=== PATIENT | male | born 1960 | race Caucasian/White ===

== ENCOUNTER 2016-09-06 16:49 | Emergency (ER) | payer SELFPAY ==
[~2016-09-06] VITALS: Ht 185.4 cm; Wt 53.5 kg
[~2016-09-06 16:49] MED LIST: Buspar PO; LOPRESSOR25 MG PO; NOHOMEMEDS; Remeron PO; celeXA PO
[2016-09-06 19:27] VITALS: BP 140/75
== END 2016-09-06 19:29 | disposition home or self-care (01) ==
LOC: EME 16:49
DX: F32.9 Major depressive disorder, single episode, unspecified (principal)
CPT/HCPCS: 90832; 99281; 99283

== ENCOUNTER 2016-09-16 05:45 | Inpatient (IN) | payer OTHER ==
[~2016-09-16] VITALS: Ht 185.4 cm; Wt 41.1 kg
[2016-09-16 06:18] LABS: HEMATOCRIT 40.2 % (38.0-50.0); MCH 28.8 PG (29.0-34.0); MCHC 32.3 G/DL (30.0-36.0); MCV 88.9 FL (86-99); MEAN PLAT.VOLUME 8.6 uM^3 (9.0-12.4); PLATELET COUNT 248 K/uL (156-360); RBC DIS.WIDTH-CV 14.1 % (11.8-14.6); RBC DIS.WIDTH-SD 45.4 % (39-53); RED BLOOD COUNT 4.52 M/uL (4.00-5.50); WHITE BLOOD COUNT 6.7 K/uL (4.1-10.2)
[2016-09-16 06:38] LABS: TROP-I INTERPRETATION NEGATIVE; TROPONIN-I < 0.01 ng/mL (0.0-0.30)
[2016-09-16 06:55] LABS: CHLORIDE 95 mEq/L (99-109); SODIUM 133 mEq/L (136-147)
[2016-09-16 06:57] LABS: GLUCOSE 105 mg/dL (70-99)
[2016-09-16 06:59] LABS: ANION GAP 13 MEQ/L (2-14)
[2016-09-16 07:01] LABS: GFR ESTIMATE (CALCULATED) > 59 mL/min/
[2016-09-16 07:02] LABS: UREA NITROGEN (BUN) 10 mg/dL (9-23)
[2016-09-16 07:48] LABS: D-DIMER ELISA 0.25 mg/L FEU (< 0.57)
[2016-09-16 10:48] LABS: INFLUENZA A VIRAL ANTIGEN NEGATIVE; INFLUENZA B VIRAL ANTIGEN NEGATIVE
[2016-09-16 12:19] LABS: TROP-I INTERPRETATION NEGATIVE; TROPONIN-I 0.01 ng/mL (0.0-0.30)
[2016-09-16 15:55] VITALS: BP 149/88
[2016-09-16 18:40] LABS: TROP-I INTERPRETATION NEGATIVE; TROPONIN-I 0.01 ng/mL (0.0-0.30)
[2016-09-16 19:34] VITALS: BP 137/69
[2016-09-16 23:26] VITALS: BP 160/89
[2016-09-17 03:10] VITALS: BP 141/60
[2016-09-17 07:50] VITALS: BP 161/89
[2016-09-17 08:56] LABS: BICARBONATE 32.8 mEq/L (22-26); CARBOXY HGB 2.4 % (0-5); METHEMOGLOBIN 2.5 % (0-1.5); PCO2 45 mm Hg (35-45); PO2 51 mm Hg (80-100); pH 7.47 (7.35-7.45)
[2016-09-17 08:57] LABS: COMMENTS - BLOOD GASES NEG A+C+; DEVICE RA; SITE RR; TOTAL RESP RATE 30 resp/min
[2016-09-17 09:25] LABS: ANION GAP 6 MEQ/L (2-14); CHLORIDE 101 MEQ/L (99-109); POTASSIUM 4.2 MEQ/L (3.7-5.4); SAMPLE HEMOLYSIS CHECK 0; SAMPLE ICTERIC CHECK 0; SAMPLE LIPEMIA CHECK 0; SODIUM 139 MEQ/L (136-147)
[2016-09-17 09:31] LABS: GFR ESTIMATE (CALCULATED) > 59 mL/min/; GLUCOSE 130 mg/dL (70-99); UREA NITROGEN (BUN) 14 mg/dL (9-23)
[2016-09-17 17:23] VITALS: BP 177/86
[2016-09-17 19:11] VITALS: BP 164/95
[2016-09-17 23:16] VITALS: BP 164/95
[2016-09-18] VITALS (7 sets, daily range): BP systolic 129–182; BP diastolic 76–94
[2016-09-18 07:29] LABS: ANION GAP 5 MEQ/L (2-14); CHLORIDE 100 MEQ/L (99-109); GFR ESTIMATE (CALCULATED) > 59 mL/min/; GLUCOSE 130 mg/dL (70-99); POTASSIUM 4.6 MEQ/L (3.7-5.4); SAMPLE HEMOLYSIS CHECK 0; SAMPLE ICTERIC CHECK 0; SAMPLE LIPEMIA CHECK 0; SODIUM 140 MEQ/L (136-147)
[2016-09-18 07:37] LABS: UREA NITROGEN (BUN) 24 mg/dL (9-23)
[2016-09-18 09:13] LABS: MAGNESIUM 2.1 mg/dl (1.3-2.7)
[2016-09-18 10:04] LABS: HEMATOCRIT 37.6 % (38.0-50.0); MCH 29.1 PG (29.0-34.0); MCHC 30.9 G/DL (30.0-36.0); MEAN PLAT.VOLUME 8.7 uM^3 (9.0-12.4); PLATELET COUNT 259 K/uL (156-360); RBC DIS.WIDTH-CV 14.6 % (11.8-14.6); RBC DIS.WIDTH-SD 50.2 % (39-53); RED BLOOD COUNT 3.99 M/uL (4.00-5.50)
[2016-09-18 10:05] LABS: MCV 94.2 FL (86-99); WHITE BLOOD COUNT 10.5 K/uL (4.1-10.2)
[2016-09-19] VITALS (27 sets, daily range): BP systolic 87–204; BP diastolic 54–106
[2016-09-19 01:50] LABS: BASE EXCESS 12.9 mEq/L (-3 to +3); CARBOXY HGB 2.2 % (0-5); METHEMOGLOBIN 2.4 % (0-1.5)
[2016-09-19 01:51] LABS: COMMENTS - BLOOD GASES C+A+; DEVICE NC; O2 FLOW 6 L/MIN; PCO2 126 mm Hg (35-45); PO2 93 mm Hg (80-100); SITE RR; pH 7.18 (7.35-7.45)
[2016-09-19 02:00] LABS: HEMATOCRIT 44.4 % (38.0-50.0); MCH 29.2 PG (29.0-34.0); MCHC 30.4 G/DL (30.0-36.0); MCV 95.9 FL (86-99); MEAN PLAT.VOLUME 8.6 uM^3 (9.0-12.4); PLATELET COUNT 330 K/uL (156-360); RBC DIS.WIDTH-CV 14.6 % (11.8-14.6); RBC DIS.WIDTH-SD 51.7 % (39-53); RED BLOOD COUNT 4.63 M/uL (4.00-5.50)
[2016-09-19 02:01] LABS: WHITE BLOOD COUNT 14.5 K/uL (4.1-10.2)
[2016-09-19 02:27] LABS: TROP-I INTERPRETATION NEGATIVE; TROPONIN-I < 0.01 ng/mL (0.0-0.30)
[2016-09-19 03:04] LABS: HDL CHOLESTEROL 55 MG/DL (Desirable>=40); LDL CHOLESTEROL 121 mg/dL (Desirable<100); NON-HDL CHOLESTEROL 137 mg/dL (Desirable<160); TOTAL CHOLESTEROL 192 mg/dL (Desirable<200); TRIGLYCERIDES 82 MG/DL (Normal: <150)
[2016-09-19 03:40] LABS: METH RESISTANT S AUREUS PCR NEGATIVE (NEGATIVE)
[2016-09-19 03:43] LABS: PROBE CHECK PASS; SPECIMEN PROCESSING CONTROL PASS
[2016-09-19 04:00] LABS: BASE EXCESS 13.5 mEq/L (-3 to +3); BICARBONATE 40.1 mEq/L (22-26); CARBOXY HGB 1.7 % (0-5); METHEMOGLOBIN 2.4 % (0-1.5); PCO2 59 mm Hg (35-45); PO2 122 mm Hg (80-100); pH 7.44 (7.35-7.45)
[2016-09-19 04:01] LABS: COMMENTS - BLOOD GASES C+; DEVICE VENT; FI02 50 %; MECHANICAL RATE 22 resp/min; MODE AC; PEEP 5 CM/H20; SITE RB; TIDAL VOLUME 500 ML; TOTAL RESP RATE 22 resp/min
[2016-09-19 05:45] LABS: HEMATOCRIT 40.2 % (38.0-50.0); MCH 29.1 PG (29.0-34.0); MCHC 30.6 G/DL (30.0-36.0); MEAN PLAT.VOLUME 8.7 uM^3 (9.0-12.4); PLATELET COUNT 237 K/uL (156-360); RBC DIS.WIDTH-CV 14.7 % (11.8-14.6); RBC DIS.WIDTH-SD 51.2 % (39-53); RED BLOOD COUNT 4.23 M/uL (4.00-5.50); WHITE BLOOD COUNT 12.3 K/uL (4.1-10.2)
[2016-09-19 06:03] LABS: ANION GAP 8 MEQ/L (2-14); CHLORIDE 99 MEQ/L (99-109); GFR ESTIMATE (CALCULATED) > 59 mL/min/; GLUCOSE 123 mg/dL (70-99); POTASSIUM 4.1 MEQ/L (3.7-5.4); SAMPLE HEMOLYSIS CHECK 0; SAMPLE ICTERIC CHECK 0; SAMPLE LIPEMIA CHECK 0; SODIUM 144 MEQ/L (136-147); UREA NITROGEN (BUN) 25 mg/dL (9-23)
[2016-09-19 09:49] LABS: BASE EXCESS 13.9 mEq/L (-3 to +3); CARBOXY HGB 1.8 % (0-5); METHEMOGLOBIN 2.6 % (0-1.5)
[2016-09-19 09:50] LABS: COMMENTS - BLOOD GASES A+C+; DEVICE 840 PB; FI02 30 %; MECHANICAL RATE 22 resp/min; MODE AC; PCO2 50 mm Hg (35-45); PEEP 5 CM/H20; PO2 68 mm Hg (80-100); SITE LR; TIDAL VOLUME 500 ML; TOTAL RESP RATE 22 resp/min
[2016-09-20] VITALS (24 sets, daily range): BP systolic 93–162; BP diastolic 51–94
[2016-09-20 08:32] LABS: HEMATOCRIT 36.9 % (38.0-50.0); MCH 29.1 PG (29.0-34.0); MCHC 30.6 G/DL (30.0-36.0); MCV 95.1 FL (86-99); MEAN PLAT.VOLUME 8.5 uM^3 (9.0-12.4); PLATELET COUNT 235 K/uL (156-360); RBC DIS.WIDTH-CV 14.9 % (11.8-14.6); RED BLOOD COUNT 3.88 M/uL (4.00-5.50)
[2016-09-20 08:34] LABS: WHITE BLOOD COUNT 7.7 K/uL (4.1-10.2)
[2016-09-20 08:48] LABS: ANION GAP 6 MEQ/L (2-14); CHLORIDE 103 MEQ/L (99-109); POTASSIUM 3.8 MEQ/L (3.7-5.4); SAMPLE HEMOLYSIS CHECK 0; SAMPLE ICTERIC CHECK 0; SAMPLE LIPEMIA CHECK 0; SODIUM 141 MEQ/L (136-147)
[2016-09-20 08:54] LABS: GFR ESTIMATE (CALCULATED) > 59 mL/min/; GLUCOSE 139 mg/dL (70-99); UREA NITROGEN (BUN) 25 mg/dL (9-23)
[2016-09-21] VITALS (25 sets, daily range): BP systolic 78–172; BP diastolic 51–94
[2016-09-21 05:53] LABS: EOSINOPHIL (%) 0 % (0-5); HEMATOCRIT 37.6 % (38.0-50.0); IMMATURE GRANULOCYTE (%) 0.5 % (0.0-0.7); INSTRUMENT ABS NEUTROPHIL CT 4.9 K/uL; LYMPHOCYTE COUNT 0.6 K/uL (1.0-2.8); MCH 29.1 PG (29.0-34.0); MCHC 30.6 G/DL (30.0-36.0); MCV 95.2 FL (86-99); MEAN PLAT.VOLUME 8.7 uM^3 (9.0-12.4); MONOCYTE (%) 7.2 % (3-12); MONOCYTE COUNT 0.4 K/uL (0-0.8); NEUTROPHIL (%) 81.9 % (45-76); NEUTROPHIL COUNT 4.9 K/uL (1.8-6.4); PLATELET COUNT 214 K/uL (156-360); RBC DIS.WIDTH-SD 52.8 % (39-53); RED BLOOD COUNT 3.95 M/uL (4.00-5.50)
[2016-09-21 06:15] LABS: ANION GAP 8 MEQ/L (2-14); CHLORIDE 108 MEQ/L (99-109); GFR ESTIMATE (CALCULATED) > 59 mL/min/; GLUCOSE 151 mg/dL (70-99); MAGNESIUM 2.2 mg/dl (1.3-2.7); SAMPLE HEMOLYSIS CHECK 0; SAMPLE ICTERIC CHECK 0; SAMPLE LIPEMIA CHECK 0; SODIUM 145 MEQ/L (136-147); UREA NITROGEN (BUN) 31 mg/dL (9-23)
[2016-09-21 19:15] LABS: BASE EXCESS 4.2 mEq/L (-3 to +3); CARBOXY HGB 1.9 % (0-5); METHEMOGLOBIN 2.2 % (0-1.5); PCO2 51 mm Hg (35-45); PO2 62 mm Hg (80-100)
[2016-09-21 19:16] LABS: BICARBONATE 30.2 mEq/L (22-26); COMMENTS - BLOOD GASES A+C+; DEVICE 840; FI02 30 %; MODE SPONT; PEEP 5 CM/H20; PRES. SUPPORT 13 CM/H2O; SITE LR; TIDAL VOLUME 860 ML; TOTAL RESP RATE 10 resp/min; pH 7.38 (7.35-7.45)
[2016-09-22] VITALS (24 sets, daily range): BP systolic 84–129; BP diastolic 50–76
[2016-09-22 05:45] LABS: EOSINOPHIL (%) 0 % (0-5); HEMATOCRIT 36.4 % (38.0-50.0); IMMATURE GRANULOCYTE (%) 0.6 % (0.0-0.7); LYMPHOCYTE COUNT 0.6 K/uL (1.0-2.8); MCHC 30.2 G/DL (30.0-36.0); MEAN PLAT.VOLUME 8.9 uM^3 (9.0-12.4); MONOCYTE (%) 6.7 % (3-12); MONOCYTE COUNT 0.3 K/uL (0-0.8); NEUTROPHIL (%) 80.7 % (45-76); PLATELET COUNT 210 K/uL (156-360); RBC DIS.WIDTH-CV 14.6 % (11.8-14.6); RBC DIS.WIDTH-SD 51.5 % (39-53); RED BLOOD COUNT 3.79 M/uL (4.00-5.50); WHITE BLOOD COUNT 4.9 K/uL (4.1-10.2)
[2016-09-22 06:03] LABS: ANION GAP 6 MEQ/L (2-14); CHLORIDE 111 MEQ/L (99-109); GFR ESTIMATE (CALCULATED) > 59 mL/min/; GLUCOSE 140 mg/dL (70-99); MAGNESIUM 2.4 mg/dl (1.3-2.7); POTASSIUM 4.5 MEQ/L (3.7-5.4); SAMPLE HEMOLYSIS CHECK 0; SAMPLE ICTERIC CHECK 0; SAMPLE LIPEMIA CHECK 0; SODIUM 147 MEQ/L (136-147); UREA NITROGEN (BUN) 37 mg/dL (9-23)
[2016-09-22 22:03] LABS: DIRECT BILIRUBIN 0.1 mg/dL (0.0-0.3); TOTAL BILIRUBIN 0.4 MG/DL (0.0-1.0)
[2016-09-22 22:09] LABS: ALKALINE PHOSPHATASE 38 IU/L (3-129); LACTATE DEHYDROGENASE 121 IU/L (20-246)
[2016-09-23] VITALS (24 sets, daily range): BP systolic 75–125; BP diastolic 49–78
[2016-09-23 06:17] LABS: EOSINOPHIL (%) 0 % (0-5); HEMATOCRIT 38.1 % (38.0-50.0); IMMATURE GRANULOCYTE (%) 0.5 % (0.0-0.7); INSTRUMENT ABS NEUTROPHIL CT 4.4 K/uL; LYMPHOCYTE COUNT 0.9 K/uL (1.0-2.8); MCH 29.5 PG (29.0-34.0); MCHC 30.7 G/DL (30.0-36.0); MCV 96.2 FL (86-99); MEAN PLAT.VOLUME 8.9 uM^3 (9.0-12.4); MONOCYTE (%) 4.7 % (3-12); MONOCYTE COUNT 0.3 K/uL (0-0.8); NEUTROPHIL (%) 79.5 % (45-76); NEUTROPHIL COUNT 4.4 K/uL (1.8-6.4); PLATELET COUNT 201 K/uL (156-360); RBC DIS.WIDTH-CV 14.6 % (11.8-14.6); RBC DIS.WIDTH-SD 51.6 % (39-53); RED BLOOD COUNT 3.96 M/uL (4.00-5.50); WHITE BLOOD COUNT 5.5 K/uL (4.1-10.2)
[2016-09-23 06:41] LABS: ANION GAP 4 MEQ/L (2-14); CHLORIDE 107 MEQ/L (99-109); GFR ESTIMATE (CALCULATED) > 59 mL/min/; GLUCOSE 162 mg/dL (70-99); MAGNESIUM 2.1 mg/dl (1.3-2.7); POTASSIUM 4.2 MEQ/L (3.7-5.4); SAMPLE HEMOLYSIS CHECK 0; SAMPLE ICTERIC CHECK 0; SAMPLE LIPEMIA CHECK 0; SODIUM 146 MEQ/L (136-147); UREA NITROGEN (BUN) 38 mg/dL (9-23)
[2016-09-23 06:53] LABS: ALKALINE PHOSPHATASE 41 IU/L (3-129); DIRECT BILIRUBIN 0.1 mg/dL (0.0-0.3)
[2016-09-23 07:06] LABS: TOTAL BILIRUBIN 0.5 MG/DL (0.0-1.0)
[2016-09-24] VITALS (25 sets, daily range): BP systolic 82–120; BP diastolic 50–74
[2016-09-24 06:05] LABS: EOSINOPHIL (%) 0.2 % (0-5); HEMATOCRIT 36.4 % (38.0-50.0); IMMATURE GRANULOCYTE (%) 0.3 % (0.0-0.7); INSTRUMENT ABS NEUTROPHIL CT 5.2 K/uL; LYMPHOCYTE COUNT 0.8 K/uL (1.0-2.8); MCH 28.9 PG (29.0-34.0); MCHC 30.2 G/DL (30.0-36.0); MCV 95.8 FL (86-99); MEAN PLAT.VOLUME 8.8 uM^3 (9.0-12.4); MONOCYTE (%) 4.1 % (3-12); MONOCYTE COUNT 0.3 K/uL (0-0.8); NEUTROPHIL (%) 83.2 % (45-76); NEUTROPHIL COUNT 5.2 K/uL (1.8-6.4); PLATELET COUNT 210 K/uL (156-360); RBC DIS.WIDTH-CV 14.5 % (11.8-14.6); RBC DIS.WIDTH-SD 51.3 % (39-53); WHITE BLOOD COUNT 6.3 K/uL (4.1-10.2)
[2016-09-24 06:58] LABS: ANION GAP 8 MEQ/L (2-14); CHLORIDE 105 MEQ/L (99-109); GFR ESTIMATE (CALCULATED) > 59 mL/min/; GLUCOSE 161 mg/dL (70-99); MAGNESIUM 2.1 mg/dl (1.3-2.7); POTASSIUM 4.4 MEQ/L (3.7-5.4); SAMPLE HEMOLYSIS CHECK 0; SAMPLE ICTERIC CHECK 0; SAMPLE LIPEMIA CHECK 0; SODIUM 147 MEQ/L (136-147); UREA NITROGEN (BUN) 39 mg/dL (9-23)
[2016-09-25] VITALS (24 sets, daily range): BP systolic 82–152; BP diastolic 51–85
[2016-09-25 06:18] LABS: GLUCOSE 129 mg/dL (70-99); UREA NITROGEN (BUN) 35 mg/dL (9-23)
[2016-09-25 06:19] LABS: ANION GAP 6 MEQ/L (2-14); CHLORIDE 99 MEQ/L (99-109); GFR ESTIMATE (CALCULATED) > 59 mL/min/; MAGNESIUM 2.2 mg/dl (1.3-2.7); POTASSIUM 4.6 MEQ/L (3.7-5.4); SAMPLE HEMOLYSIS CHECK 0; SAMPLE ICTERIC CHECK 0; SAMPLE LIPEMIA CHECK 0; SODIUM 141 MEQ/L (136-147)
[2016-09-25 07:07] LABS: EOSINOPHIL (%) 0.1 % (0-5); HEMATOCRIT 36.5 % (38.0-50.0); IMMATURE GRANULOCYTE (%) 0.6 % (0.0-0.7); IMMATURE GRANULOCYTE COUNT 0.1 K/uL; INSTRUMENT ABS NEUTROPHIL CT 8.9 K/uL; LYMPHOCYTE COUNT 0.7 K/uL (1.0-2.8); MCH 29.2 PG (29.0-34.0); MCHC 30.7 G/DL (30.0-36.0); MCV 95.3 FL (86-99); MEAN PLAT.VOLUME 9.2 uM^3 (9.0-12.4); MONOCYTE (%) 5.7 % (3-12); MONOCYTE COUNT 0.6 K/uL (0-0.8); NEUTROPHIL (%) 86.9 % (45-76); NEUTROPHIL COUNT 8.9 K/uL (1.8-6.4); PLATELET COUNT 210 K/uL (156-360); RBC DIS.WIDTH-CV 14.3 % (11.8-14.6); RBC DIS.WIDTH-SD 50.4 % (39-53); RED BLOOD COUNT 3.83 M/uL (4.00-5.50)
[2016-09-25 07:13] LABS: WHITE BLOOD COUNT 10.3 K/uL (4.1-10.2)
[2016-09-26] VITALS (24 sets, daily range): BP systolic 92–156; BP diastolic 50–84
[2016-09-26 05:56] LABS: EOSINOPHIL (%) 0 % (0-5); HEMATOCRIT 35.5 % (38.0-50.0); IMMATURE GRANULOCYTE (%) 0.7 % (0.0-0.7); IMMATURE GRANULOCYTE COUNT 0.1 K/uL; INSTRUMENT ABS NEUTROPHIL CT 8.7 K/uL; LYMPHOCYTE COUNT 0.7 K/uL (1.0-2.8); MCH 29.4 PG (29.0-34.0); MCHC 30.4 G/DL (30.0-36.0); MCV 96.7 FL (86-99); MEAN PLAT.VOLUME 9.2 uM^3 (9.0-12.4); MONOCYTE (%) 6.4 % (3-12); MONOCYTE COUNT 0.6 K/uL (0-0.8); NEUTROPHIL (%) 85.8 % (45-76); NEUTROPHIL COUNT 8.7 K/uL (1.8-6.4); PLATELET COUNT 187 K/uL (156-360); RBC DIS.WIDTH-CV 14.1 % (11.8-14.6); RBC DIS.WIDTH-SD 50.4 % (39-53); RED BLOOD COUNT 3.67 M/uL (4.00-5.50); WHITE BLOOD COUNT 10.1 K/uL (4.1-10.2)
[2016-09-26 06:21] LABS: ANION GAP 7 MEQ/L (2-14); CHLORIDE 108 MEQ/L (99-109); GFR ESTIMATE (CALCULATED) > 59 mL/min/; GLUCOSE 98 mg/dL (70-99); MAGNESIUM 2.1 mg/dl (1.3-2.7); SAMPLE HEMOLYSIS CHECK 1; SAMPLE ICTERIC CHECK 0; SAMPLE LIPEMIA CHECK 0; SODIUM 142 MEQ/L (136-147); UREA NITROGEN (BUN) 33 mg/dL (9-23)
[2016-09-26 06:22] LABS: POTASSIUM 4.5 MEQ/L (3.7-5.4)
[2016-09-26 11:53] LABS: HIV INDEX 0.06; HIV-1/2 AB/AG COMBO Nonreactive
[2016-09-26 12:57] LABS: PREALBUMIN 20.8 mg/dL (10-40)
[2016-09-27] VITALS (13 sets, daily range): BP systolic 125–172; BP diastolic 70–86
[2016-09-27 02:46] LABS: EOSINOPHIL (%) 0 % (0-5); HEMATOCRIT 43.8 % (38.0-50.0); IMMATURE GRANULOCYTE (%) 0.8 % (0.0-0.7); IMMATURE GRANULOCYTE COUNT 0.1 K/uL; INSTRUMENT ABS NEUTROPHIL CT 11.9 K/uL; LYMPHOCYTE COUNT 0.5 K/uL (1.0-2.8); MCH 29.1 PG (29.0-34.0); MCHC 30.6 G/DL (30.0-36.0); MEAN PLAT.VOLUME 8.8 uM^3 (9.0-12.4); MONOCYTE (%) 3.5 % (3-12); MONOCYTE COUNT 0.5 K/uL (0-0.8); NEUTROPHIL (%) 91.7 % (45-76); NEUTROPHIL COUNT 11.9 K/uL (1.8-6.4); PLATELET COUNT 232 K/uL (156-360); RBC DIS.WIDTH-CV 13.8 % (11.8-14.6); RBC DIS.WIDTH-SD 48.2 % (39-53)
[2016-09-27 02:47] LABS: RED BLOOD COUNT 4.61 M/uL (4.00-5.50)
[2016-09-27 02:48] LABS: CHLORIDE 109 mEq/L (99-109); POTASSIUM 3.8 mEq/L (3.7-5.4); SODIUM 142 mEq/L (136-147)
[2016-09-27 02:49] LABS: MAGNESIUM 2.2 mg/dL (1.3-2.7)
[2016-09-27 02:50] LABS: GLUCOSE 108 mg/dL (70-99)
[2016-09-27 02:52] LABS: ANION GAP 12 MEQ/L (2-14)
[2016-09-27 02:54] LABS: GFR ESTIMATE (CALCULATED) > 59 mL/min/
[2016-09-27 02:55] LABS: UREA NITROGEN (BUN) 39 mg/dL (9-23)
[2016-09-28 02:35] VITALS: BP 162/85
[2016-09-28 07:05] VITALS: BP 146/84
[2016-09-28 07:19] LABS: EOSINOPHIL (%) 0 % (0-5); HEMATOCRIT 36.6 % (38.0-50.0); IMMATURE GRANULOCYTE (%) 0.7 % (0.0-0.7); IMMATURE GRANULOCYTE COUNT 0.1 K/uL; INSTRUMENT ABS NEUTROPHIL CT 13.6 K/uL; LYMPHOCYTE COUNT 1.7 K/uL (1.0-2.8); MCH 29.4 PG (29.0-34.0); MEAN PLAT.VOLUME 9.3 uM^3 (9.0-12.4); MONOCYTE (%) 8.2 % (3-12); MONOCYTE COUNT 1.4 K/uL (0-0.8); NEUTROPHIL COUNT 13.6 K/uL (1.8-6.4); PLATELET COUNT 235 K/uL (156-360); RBC DIS.WIDTH-CV 14.1 % (11.8-14.6); RBC DIS.WIDTH-SD 47.5 % (39-53); RED BLOOD COUNT 3.98 M/uL (4.00-5.50); WHITE BLOOD COUNT 16.8 K/uL (4.1-10.2)
[2016-09-28 07:46] LABS: ANION GAP 10 MEQ/L (2-14); CHLORIDE 109 MEQ/L (99-109); GFR ESTIMATE (CALCULATED) > 59 mL/min/; GLUCOSE 95 mg/dL (70-99); MAGNESIUM 1.8 mg/dl (1.3-2.7); POTASSIUM 3.4 MEQ/L (3.7-5.4); SAMPLE HEMOLYSIS CHECK 0; SAMPLE ICTERIC CHECK 0; SAMPLE LIPEMIA CHECK 0; SODIUM 146 MEQ/L (136-147); UREA NITROGEN (BUN) 32 mg/dL (9-23)
[2016-09-28 12:03] VITALS: BP 138/88
[2016-09-28 16:40] VITALS: BP 150/82
[2016-09-28 20:17] VITALS: BP 135/82
[2016-09-29 00:07] VITALS: BP 146/84
[2016-09-29 04:06] VITALS: BP 148/86
[2016-09-29 06:03] LABS: EOSINOPHIL (%) 0.4 % (0-5); EOSINOPHIL COUNT 0.1 K/uL (0-0.3); HEMATOCRIT 35.4 % (38.0-50.0); IMMATURE GRANULOCYTE (%) 0.4 % (0.0-0.7); IMMATURE GRANULOCYTE COUNT 0.1 K/uL; LYMPHOCYTE COUNT 1.5 K/uL (1.0-2.8); MCH 29.7 PG (29.0-34.0); MCHC 31.6 G/DL (30.0-36.0); MCV 93.9 FL (86-99); MEAN PLAT.VOLUME 9.5 uM^3 (9.0-12.4); MONOCYTE (%) 6.8 % (3-12); MONOCYTE COUNT 0.9 K/uL (0-0.8); NEUTROPHIL (%) 81.5 % (45-76); PLATELET COUNT 200 K/uL (156-360); RBC DIS.WIDTH-SD 47.9 % (39-53); RED BLOOD COUNT 3.77 M/uL (4.00-5.50); WHITE BLOOD COUNT 13.4 K/uL (4.1-10.2)
[2016-09-29 06:41] LABS: ALKALINE PHOSPHATASE 38 IU/L (3-129); ANION GAP 6 MEQ/L (2-14); CHLORIDE 105 MEQ/L (99-109); GFR ESTIMATE (CALCULATED) > 59 mL/min/; GLUCOSE 109 mg/dL (70-99); MAGNESIUM 1.7 mg/dl (1.3-2.7); POTASSIUM 3.5 MEQ/L (3.7-5.4); SAMPLE HEMOLYSIS CHECK 0; SAMPLE ICTERIC CHECK 0; SAMPLE LIPEMIA CHECK 0; SODIUM 142 MEQ/L (136-147); UREA NITROGEN (BUN) 22 mg/dL (9-23)
[2016-09-29 06:42] LABS: TOTAL BILIRUBIN 0.7 MG/DL (0.0-1.0)
[2016-09-29 07:06] VITALS: BP 144/79
[2016-09-29 12:35] LABS: TROP-I INTERPRETATION NEGATIVE; TROPONIN-I < 0.01 ng/mL (0.0-0.30)
[2016-09-29 16:38] VITALS: BP 141/82
[2016-09-29 18:16] LABS: TROP-I INTERPRETATION NEGATIVE; TROPONIN-I 0.01 ng/mL (0.0-0.30)
[2016-09-29 19:13] LABS: ADD MIUA? YES; BILIRUBIN NEGATIVE; BLOOD SMALL; COLOR YELLOW ((YELLOW)); GLUCOSE (STRIP) >=500; KETONES NEGATIVE; LEUKOCYTES NEGATIVE; NITRITE NEGATIVE; PROTEIN (STRIP) NEGATIVE; SPECIFIC GRAVITY 1.013 (1.000-1.030); UROBILINOGEN 0.2 MG/DL (0.2-1.0)
[2016-09-29 19:28] VITALS: BP 131/75
[2016-09-29 20:08] LABS: AMORPHOUS PHOSPHATE CRYSTALS 4+; BACTERIA NONE SEEN /HPF; CRYSTALS PRESENT; EPITHELIAL CELLS NONE SEEN /HPF; MUCUS NONE SEEN /LPF; RED BLOOD CELLS 0-5 /HPF (0-5); UCUL ADDED? NO; WHITE BLOOD CELLS 0-5 /HPF (0-5)
[2016-09-29 23:38] VITALS: BP 136/78
[2016-09-30 01:02] LABS: TROP-I INTERPRETATION NEGATIVE; TROPONIN-I < 0.01 ng/mL (0.0-0.30)
[2016-09-30 03:18] VITALS: BP 127/74
[2016-09-30 06:30] LABS: EOSINOPHIL (%) 0.4 % (0-5); EOSINOPHIL COUNT 0.1 K/uL (0-0.3); HEMATOCRIT 36.2 % (38.0-50.0); IMMATURE GRANULOCYTE (%) 0.5 % (0.0-0.7); IMMATURE GRANULOCYTE COUNT 0.1 K/uL; INSTRUMENT ABS NEUTROPHIL CT 10.4 K/uL; LYMPHOCYTE COUNT 1.3 K/uL (1.0-2.8); MCH 29.5 PG (29.0-34.0); MCV 92.1 FL (86-99); MEAN PLAT.VOLUME 9.2 uM^3 (9.0-12.4); MONOCYTE (%) 6.5 % (3-12); MONOCYTE COUNT 0.8 K/uL (0-0.8); NEUTROPHIL (%) 82.6 % (45-76); NEUTROPHIL COUNT 10.4 K/uL (1.8-6.4); PLATELET COUNT 189 K/uL (156-360); RBC DIS.WIDTH-CV 13.5 % (11.8-14.6); RBC DIS.WIDTH-SD 45.5 % (39-53); RED BLOOD COUNT 3.93 M/uL (4.00-5.50); WHITE BLOOD COUNT 12.6 K/uL (4.1-10.2)
[2016-09-30 06:54] LABS: ALKALINE PHOSPHATASE 42 IU/L (3-129); ANION GAP 5 MEQ/L (2-14); CHLORIDE 101 MEQ/L (99-109); GFR ESTIMATE (CALCULATED) > 59 mL/min/; GLUCOSE 99 mg/dL (70-99); MAGNESIUM 1.7 mg/dl (1.3-2.7); POTASSIUM 3.8 MEQ/L (3.7-5.4); SAMPLE HEMOLYSIS CHECK 0; SAMPLE ICTERIC CHECK 0; SAMPLE LIPEMIA CHECK 0; SODIUM 139 MEQ/L (136-147); TOTAL BILIRUBIN 0.7 MG/DL (0.0-1.0); UREA NITROGEN (BUN) 20 mg/dL (9-23)
[2016-09-30 08:00] VITALS: BP 140/80
[2016-09-30 10:47] VITALS: BP 139/80
[2016-09-30 15:28] VITALS: BP 131/78
[2016-09-30 19:26] VITALS: BP 141/81
[2016-09-30 23:30] VITALS: BP 136/79
[2016-10-01 03:18] VITALS: BP 131/69
[2016-10-01 07:00] LABS: EOSINOPHIL (%) 0.6 % (0-5); EOSINOPHIL COUNT 0.1 K/uL (0-0.3); HEMATOCRIT 34.9 % (38.0-50.0); IMMATURE GRANULOCYTE (%) 0.4 % (0.0-0.7); IMMATURE GRANULOCYTE COUNT 0.1 K/uL; INSTRUMENT ABS NEUTROPHIL CT 9.7 K/uL; LYMPHOCYTE COUNT 1.3 K/uL (1.0-2.8); MCH 29.2 PG (29.0-34.0); MCHC 31.8 G/DL (30.0-36.0); MCV 91.8 FL (86-99); MEAN PLAT.VOLUME 9.1 uM^3 (9.0-12.4); MONOCYTE (%) 5.5 % (3-12); MONOCYTE COUNT 0.7 K/uL (0-0.8); NEUTROPHIL (%) 82.1 % (45-76); NEUTROPHIL COUNT 9.7 K/uL (1.8-6.4); PLATELET COUNT 202 K/uL (156-360); RBC DIS.WIDTH-CV 13.4 % (11.8-14.6); RBC DIS.WIDTH-SD 45.4 % (39-53); WHITE BLOOD COUNT 11.8 K/uL (4.1-10.2)
[2016-10-01 07:33] LABS: ALKALINE PHOSPHATASE 42 IU/L (3-129); ANION GAP 5 MEQ/L (2-14); CHLORIDE 96 MEQ/L (99-109); GFR ESTIMATE (CALCULATED) > 59 mL/min/; GLUCOSE 100 mg/dL (70-99); MAGNESIUM 1.7 mg/dl (1.3-2.7); POTASSIUM 3.9 MEQ/L (3.7-5.4); SAMPLE HEMOLYSIS CHECK 0; SAMPLE ICTERIC CHECK 0; SAMPLE LIPEMIA CHECK 0; SODIUM 138 MEQ/L (136-147); TOTAL BILIRUBIN 0.7 MG/DL (0.0-1.0); UREA NITROGEN (BUN) 21 mg/dL (9-23)
[2016-10-01 07:43] VITALS: BP 138/80
[2016-10-01 10:56] VITALS: BP 142/83
[2016-10-01 17:14] VITALS: BP 140/71
[2016-10-01 18:38] VITALS: BP 132/73
[2016-10-02 03:26] VITALS: BP 130/74
[2016-10-02 07:21] LABS: EOSINOPHIL COUNT 0.1 K/uL (0-0.3); HEMATOCRIT 33.6 % (38.0-50.0); IMMATURE GRANULOCYTE (%) 0.3 % (0.0-0.7); INSTRUMENT ABS NEUTROPHIL CT 7.6 K/uL; LYMPHOCYTE COUNT 1.2 K/uL (1.0-2.8); MCH 29.6 PG (29.0-34.0); MCHC 32.1 G/DL (30.0-36.0); MCV 92.1 FL (86-99); MEAN PLAT.VOLUME 9.3 uM^3 (9.0-12.4); MONOCYTE (%) 5.2 % (3-12); MONOCYTE COUNT 0.5 K/uL (0-0.8); NEUTROPHIL (%) 80.6 % (45-76); NEUTROPHIL COUNT 7.6 K/uL (1.8-6.4); PLATELET COUNT 192 K/uL (156-360); RBC DIS.WIDTH-CV 13.4 % (11.8-14.6); RBC DIS.WIDTH-SD 44.8 % (39-53); RED BLOOD COUNT 3.65 M/uL (4.00-5.50); WHITE BLOOD COUNT 9.4 K/uL (4.1-10.2)
[2016-10-02 07:33] LABS: ANION GAP 4 MEQ/L (2-14); CHLORIDE 95 MEQ/L (99-109); GFR ESTIMATE (CALCULATED) > 59 mL/min/; GLUCOSE 86 mg/dL (70-99); MAGNESIUM 1.8 mg/dl (1.3-2.7); POTASSIUM 3.7 MEQ/L (3.7-5.4); SAMPLE HEMOLYSIS CHECK 0; SAMPLE ICTERIC CHECK 0; SAMPLE LIPEMIA CHECK 0; SODIUM 136 MEQ/L (136-147); UREA NITROGEN (BUN) 17 mg/dL (9-23)
[2016-10-02 07:34] LABS: ALKALINE PHOSPHATASE 44 IU/L (3-129); ANION GAP 6 MEQ/L (2-14); CHLORIDE 95 MEQ/L (99-109); GFR ESTIMATE (CALCULATED) > 59 mL/min/; GLUCOSE 87 mg/dL (70-99); POTASSIUM 3.8 MEQ/L (3.7-5.4); SAMPLE HEMOLYSIS CHECK 0; SAMPLE ICTERIC CHECK 0; SAMPLE LIPEMIA CHECK 0; SODIUM 137 MEQ/L (136-147); TOTAL BILIRUBIN 0.7 MG/DL (0.0-1.0); UREA NITROGEN (BUN) 17 mg/dL (9-23)
[2016-10-02 08:44] VITALS: BP 138/77
[2016-10-02] MEDS ORDERED: DUONEB 2.5-0.5 M3 ML AEROSOL (10:54)
[2016-10-02 12:12] VITALS: BP 154/74
[2016-10-02 16:00] VITALS: BP 117/78
[2016-10-02 22:37] VITALS: BP 153/84
[2016-10-03 06:35] VITALS: BP 139/88
[2016-10-03 07:09] LABS: EOSINOPHIL (%) 0.7 % (0-5); EOSINOPHIL COUNT 0.1 K/uL (0-0.3); HEMATOCRIT 34.8 % (38.0-50.0); IMMATURE GRANULOCYTE (%) 0.4 % (0.0-0.7); INSTRUMENT ABS NEUTROPHIL CT 7.3 K/uL; LYMPHOCYTE COUNT 1.3 K/uL (1.0-2.8); MCH 29.7 PG (29.0-34.0); MCHC 32.5 G/DL (30.0-36.0); MCV 91.6 FL (86-99); MEAN PLAT.VOLUME 9.2 uM^3 (9.0-12.4); MONOCYTE (%) 5.1 % (3-12); MONOCYTE COUNT 0.5 K/uL (0-0.8); NEUTROPHIL (%) 79.7 % (45-76); NEUTROPHIL COUNT 7.3 K/uL (1.8-6.4); PLATELET COUNT 204 K/uL (156-360); RBC DIS.WIDTH-CV 13.7 % (11.8-14.6); RBC DIS.WIDTH-SD 45.4 % (39-53); WHITE BLOOD COUNT 9.2 K/uL (4.1-10.2)
[2016-10-03 08:19] LABS: ANION GAP 6 MEQ/L (2-14); CHLORIDE 95 MEQ/L (99-109); GFR ESTIMATE (CALCULATED) > 59 mL/min/; GLUCOSE 100 mg/dL (70-99); MAGNESIUM 1.9 mg/dl (1.3-2.7); SAMPLE HEMOLYSIS CHECK 0; SAMPLE ICTERIC CHECK 0; SAMPLE LIPEMIA CHECK 0; SODIUM 135 MEQ/L (136-147); UREA NITROGEN (BUN) 17 mg/dL (9-23)
[2016-10-03 09:52] LABS: ALKALINE PHOSPHATASE 50 IU/L (3-129); DIRECT BILIRUBIN 0.2 mg/dL (0.0-0.3); TOTAL BILIRUBIN 0.8 MG/DL (0.0-1.0)
[2016-10-03 12:26] LABS: HBSG INDEX 0.21
[2016-10-03 12:27] LABS: ANTI-HEPATITIS A VIRUS (IGM) Nonreactive; HAV INDEX 0.18
[2016-10-03 12:28] LABS: ANTI-HEPATITIS B CORE (IGM) Nonreactive; HBC IgM INDEX 0.12
[2016-10-03 13:20] LABS: HPCA INDEX 13.26
[2016-10-03 15:51] VITALS: BP 142/86
[2016-10-03 22:30] VITALS: BP 139/78
[2016-10-04 06:20] LABS: EOSINOPHIL (%) 0.7 % (0-5); EOSINOPHIL COUNT 0.1 K/uL (0-0.3); HEMATOCRIT 35.6 % (38.0-50.0); IMMATURE GRANULOCYTE (%) 0.5 % (0.0-0.7); IMMATURE GRANULOCYTE COUNT 0.1 K/uL; INSTRUMENT ABS NEUTROPHIL CT 7.6 K/uL; LYMPHOCYTE COUNT 1.4 K/uL (1.0-2.8); MCH 29.2 PG (29.0-34.0); MCHC 31.7 G/DL (30.0-36.0); MEAN PLAT.VOLUME 8.8 uM^3 (9.0-12.4); MONOCYTE (%) 5.5 % (3-12); MONOCYTE COUNT 0.5 K/uL (0-0.8); NEUTROPHIL (%) 78.9 % (45-76); NEUTROPHIL COUNT 7.6 K/uL (1.8-6.4); PLATELET COUNT 210 K/uL (156-360); RBC DIS.WIDTH-CV 13.6 % (11.8-14.6); RBC DIS.WIDTH-SD 45.2 % (39-53); RED BLOOD COUNT 3.87 M/uL (4.00-5.50); WHITE BLOOD COUNT 9.7 K/uL (4.1-10.2)
[2016-10-04 06:48] LABS: ALKALINE PHOSPHATASE 49 IU/L (3-129); ANION GAP 5 MEQ/L (2-14); CHLORIDE 96 MEQ/L (99-109); GFR ESTIMATE (CALCULATED) > 59 mL/min/; GLUCOSE 91 mg/dL (70-99); MAGNESIUM 1.9 mg/dl (1.3-2.7); POTASSIUM 4.4 MEQ/L (3.7-5.4); SAMPLE HEMOLYSIS CHECK 0; SAMPLE ICTERIC CHECK 0; SAMPLE LIPEMIA CHECK 0; SODIUM 135 MEQ/L (136-147); TOTAL BILIRUBIN 0.7 MG/DL (0.0-1.0); UREA NITROGEN (BUN) 19 mg/dL (9-23)
[2016-10-04 07:09] VITALS: BP 148/93
[2016-10-04 15:55] VITALS: BP 132/81
[2016-10-04 23:08] VITALS: BP 145/83
[2016-10-05 06:42] LABS: EOSINOPHIL COUNT 0.1 K/uL (0-0.3); HEMATOCRIT 35.6 % (38.0-50.0); IMMATURE GRANULOCYTE (%) 0.3 % (0.0-0.7); LYMPHOCYTE COUNT 1.5 K/uL (1.0-2.8); MCHC 32.9 G/DL (30.0-36.0); MCV 91.3 FL (86-99); MEAN PLAT.VOLUME 8.7 uM^3 (9.0-12.4); MONOCYTE (%) 6.6 % (3-12); MONOCYTE COUNT 0.6 K/uL (0-0.8); NEUTROPHIL (%) 75.7 % (45-76); PLATELET COUNT 221 K/uL (156-360); RBC DIS.WIDTH-CV 13.9 % (11.8-14.6); RBC DIS.WIDTH-SD 45.7 % (39-53); WHITE BLOOD COUNT 9.3 K/uL (4.1-10.2)
[2016-10-05 06:46] VITALS: BP 150/83
[2016-10-05 07:06] LABS: ANION GAP 6 MEQ/L (2-14); CHLORIDE 97 MEQ/L (99-109); GFR ESTIMATE (CALCULATED) > 59 mL/min/; GLUCOSE 87 mg/dL (70-99); MAGNESIUM 1.9 mg/dl (1.3-2.7); POTASSIUM 4.2 MEQ/L (3.7-5.4); SAMPLE HEMOLYSIS CHECK 0; SAMPLE ICTERIC CHECK 0; SAMPLE LIPEMIA CHECK 0; SODIUM 134 MEQ/L (136-147); UREA NITROGEN (BUN) 21 mg/dL (9-23)
[2016-10-05] MEDS ORDERED: DUONEB 2.5-0.5 M3 ML AEROSOL (11:39)
[2016-10-05] MEDS ORDERED: MYCOSTATIN 100,60 ML PO (11:53)
[2016-10-05] MEDS ORDERED: SPIRIVA RESPIMAT4 GM IH (11:53)
[2016-10-05] MEDS ORDERED: OYSTER SHELL 51 EACH PO (11:54)
[2016-10-05] MEDS ORDERED: ADVAIR HFA120 INHALA IH (11:54)
[2016-10-05] MEDS ORDERED: MIRTAZAPINE7.5 MG PO (11:54)
[2016-10-05] MEDS ORDERED: BISAC-EVAC10 MG PR (11:54)
[2016-10-05] MEDS ORDERED: NICOTINE PATCH1 EAC2 TD (11:54)
[2016-10-05] MEDS ORDERED: FLORASTOR250 MG PO (11:54)
[2016-10-05] MEDS ORDERED: CYANOCOBALAM1000 MCG PO (11:54)
[2016-10-05] MEDS ORDERED: SPIRIVA1 INHALATI IH (13:25)
[2016-10-05 16:04] VITALS: BP 131/87
[2016-10-06 07:45] LABS: HCV RNA (LOG IU/mL) 7.08 (<1.18)
== END 2016-10-05 16:57 | disposition home health service (06) | DRG 207 ==
LOC: EME 05:45 → EDOF 07:36 → 5EAST 07:36 → 4WEST 07:36 → 5EAST 13:11 → 4WEST 09-19 01:57 → 5EAST 09-27 10:35
PROVIDERS: Hospitalist; Internal Medicine; Internal Medicine Critical Care Medicine; Internal Medicine Nephrology; Internal Medicine Pulmonary Disease
PROC: 0BH18EZ Insertion of Endotracheal Airway into Trachea, Via Natural or Artificial Opening Endoscopic (ICD-10-PCS; principal; 2016-09-19)
PROC: 5A1955Z Respiratory Ventilation, Greater than 96 Consecutive Hours (ICD-10-PCS; 2016-09-19)
DX: J44.1 Chronic obstructive pulmonary disease with (acute) exacerbation (principal); J96.01 Acute respiratory failure with hypoxia; J69.0 Pneumonitis due to inhalation of food and vomit; J96.02 Acute respiratory failure with hypercapnia; E43 Unspecified severe protein-calorie malnutrition; E87.1 Hypo-osmolality and hyponatremia; F33.9 Major depressive disorder, recurrent, unspecified; R64 Cachexia; E87.0 Hyperosmolality and hypernatremia; B37.0 Candidal stomatitis; Z68.1 Body mass index [BMI] 19.9 or less, adult; F10.239 Alcohol dependence with withdrawal, unspecified; F17.200 Nicotine dependence, unspecified, uncomplicated; F41.9 Anxiety disorder, unspecified; R79.89 Other specified abnormal findings of blood chemistry; R91.1 Solitary pulmonary nodule; W19.XXXA Unspecified fall, initial encounter; R41.82 Altered mental status, unspecified; D64.9 Anemia, unspecified; R45.1 Restlessness and agitation; Z66 Do not resuscitate; I10 Essential (primary) hypertension; R51 Headache; Y99.9 Unspecified external cause status
CPT/HCPCS: 31500; 36600; 70450; 71010; 71020; 71250; 71260; 72125; 74177; 74230; 80048; 80048 91; 80053; 80061; 80074; 80076; 80202; 81003; 82103 90; 82140; 82306; 82378; 82607; 82803; 82948; 83605; 83615; 83735; 83880; 83921 90; 84100; 84134; 84484; 85025; 85027; 85379; 86703; 87040; 87070; 87106; 87205; 87502; 87522 90; 87641; 92526 GN; 92610 GN; 92611 GN; 93005; 93306; 94002; 94003; 94640; 94640 76; 94667; 94668; 94760; 94799; 97530 GO; 97530 GP; 99202; 99281; 99285; J0330; J0360; J1120; J1200; J1630; J1650; J1885; J2060; J2250; J2270; J2405; J2543; J2704; J2765; J2920; J2930; J3010; J3370; J3486; J7030; J7050; J7512; P9045; S0028

== ENCOUNTER 2016-12-07 06:06 | Emergency (ER) | payer OTHER ==
[~2016-12-07] VITALS: Ht 188 cm; Wt 55.7 kg
[~2016-12-07 06:06] MED LIST changes: +ADVAIR HFA120 INHALA IH; +BISAC-EVAC10 MG PR; +CYANOCOBALAM1000 MCG PO; +DUONEB 2.5-0.5 M3 ML AEROSOL; +FLORASTOR250 MG PO; +MIRTAZAPINE7.5 MG PO; +MYCOSTATIN 100,60 ML PO; +NICOTINE PATCH1 EAC2 TD; +OYSTER SHELL 51 EACH PO; +SPIRIVA RESPIMAT4 GM IH; +SPIRIVA1 INHALATI IH
[2016-12-07 07:00] LABS: EOSINOPHIL (%) 2.9 % (0-5); EOSINOPHIL COUNT 0.2 K/uL (0-0.3); HEMATOCRIT 40.2 % (38.0-50.0); IMMATURE GRANULOCYTE (%) 0.1 % (0.0-0.7); INSTRUMENT ABS NEUTROPHIL CT 4.8 K/uL; LYMPHOCYTE COUNT 1.6 K/uL (1.0-2.8); MCH 28.8 PG (29.0-34.0); MCHC 31.8 G/DL (30.0-36.0); MCV 90.5 FL (86-99); MONOCYTE (%) 7.1 % (3-12); MONOCYTE COUNT 0.5 K/uL (0-0.8); NEUTROPHIL (%) 67.1 % (45-76); NEUTROPHIL COUNT 4.8 K/uL (1.8-6.4); PLATELET COUNT 272 K/uL (156-360); RBC DIS.WIDTH-SD 43.3 % (39-53); RED BLOOD COUNT 4.44 M/uL (4.00-5.50); WHITE BLOOD COUNT 7.2 K/uL (4.1-10.2)
[2016-12-07 07:52] LABS: ANION GAP 7 MEQ/L (2-14); CHLORIDE 104 MEQ/L (99-109); GFR ESTIMATE (CALCULATED) > 59 mL/min/; GLUCOSE 95 mg/dL (70-99); POTASSIUM 4.2 MEQ/L (3.7-5.4); SAMPLE HEMOLYSIS CHECK 0; SAMPLE ICTERIC CHECK 0; SAMPLE LIPEMIA CHECK 0; SODIUM 141 MEQ/L (136-147); UREA NITROGEN (BUN) 13 mg/dL (9-23)
[2016-12-07 07:55] LABS: TROP-I INTERPRETATION NEGATIVE; TROPONIN-I < 0.01 ng/mL (0.0-0.30)
[2016-12-07] MEDS ORDERED: PREDNISONE50 MG PO (09:01)
[2016-12-07] MEDS ORDERED: ZITHROMAX Z-PA250 MG PO (09:01)
[2016-12-07 09:36] VITALS: BP 121/79
== END 2016-12-07 09:38 | disposition home or self-care (01) ==
LOC: EME 06:06
PROVIDERS: Emergency Medicine
DX: J44.1 Chronic obstructive pulmonary disease with (acute) exacerbation (principal); J44.0 Chronic obstructive pulmonary disease with (acute) lower respiratory infection; J20.9 Acute bronchitis, unspecified; Z87.891 Personal history of nicotine dependence; I10 Essential (primary) hypertension; F32.9 Major depressive disorder, single episode, unspecified
CPT/HCPCS: 71020; 80048; 84484; 85025; 93005; 94640; 99281; 99284; J7512

== ENCOUNTER 2017-03-23 22:56 | Inpatient (IN) | payer OTHER ==
[~2017-03-23] VITALS: Ht 188 cm; Wt 55.4 kg
[~2017-03-23 22:56] MED LIST changes: +PREDNISONE50 MG PO; +ZITHROMAX Z-PA250 MG PO
[2017-03-23 23:48] LABS: HEMATOCRIT 36.4 % (38.0-50.0); MCH 27.2 PG (29.0-34.0); MCV 87.7 FL (86-99); MEAN PLAT.VOLUME 8.4 uM^3 (9.0-12.4); PLATELET COUNT 531 K/uL (156-360); RBC DIS.WIDTH-CV 13.7 % (11.8-14.6); RBC DIS.WIDTH-SD 44.2 % (39-53); RED BLOOD COUNT 4.15 M/uL (4.00-5.50); WHITE BLOOD COUNT 11.7 K/uL (4.1-10.2)
[2017-03-24] VITALS (7 sets, daily range): BP systolic 119–129; BP diastolic 66–76
[2017-03-24] LABS: CHLORIDE 101 mEq/L (99-109); POTASSIUM 3.5 mEq/L (3.7-5.4); SODIUM 142 mEq/L (136-147)
[2017-03-24 00:01] LABS: GLUCOSE 107 mg/dL (70-99)
[2017-03-24 00:03] LABS: ANION GAP 10 MEQ/L (2-14)
[2017-03-24 00:05] LABS: GFR ESTIMATE (CALCULATED) > 59 mL/min/
[2017-03-24 00:06] LABS: CARBON DIOXIDE (BICARBONATE) 36.3 MEQ/L (20-31)
[2017-03-24 00:06] LABS: UREA NITROGEN (BUN) 14 mg/dL (9-23)
[2017-03-24 00:24] LABS: TROP-I INTERPRETATION NEGATIVE; TROPONIN-I < 0.01 ng/mL (0.0-0.30)
[2017-03-24] MEDS ORDERED: ASPIRIN EC325 MG PO (01:07)
[2017-03-24] MEDS ORDERED: VENTOLIN HFA18 GM IH (01:08)
[2017-03-24] MEDS ORDERED: INCRUSE ELLI62.5 MCG IH (01:08)
[2017-03-24] MEDS ORDERED: DESYREL100 MG PO (01:09)
[2017-03-24 07:24] LABS: ADD MIUA? NO; BILIRUBIN NEGATIVE; BLOOD NEGATIVE; COLOR YELLOW ((YELLOW)); GLUCOSE (STRIP) NEGATIVE; KETONES NEGATIVE; LEUKOCYTES NEGATIVE; NITRITE NEGATIVE; PROTEIN (STRIP) NEGATIVE
[2017-03-24 07:40] LABS: SPECIFIC GRAVITY 1.072 (1.000-1.030)
[2017-03-24 07:51] LABS: UCUL ADDED? NO
[2017-03-24 19:21] LABS: INTER. NORMALIZED RATIO 1.2; PROTHROMBIN TIME 13.7 SEC (10.2-12.9)
[2017-03-24 19:24] LABS: PTT 33.9 SEC (25-37)
[2017-03-25 04:31] VITALS: BP 133/87
[2017-03-25 07:09] LABS: EOSINOPHIL (%) 0 % (0-5); HEMATOCRIT 34.6 % (38.0-50.0); IMMATURE GRANULOCYTE (%) 1.1 % (0.0-0.7); IMMATURE GRANULOCYTE COUNT 0.2 K/uL; INSTRUMENT ABS NEUTROPHIL CT 12.2 K/uL; LYMPHOCYTE COUNT 0.6 K/uL (1.0-2.8); MCH 27.2 PG (29.0-34.0); MCHC 30.6 G/DL (30.0-36.0); MCV 88.9 FL (86-99); MEAN PLAT.VOLUME 8.4 uM^3 (9.0-12.4); MONOCYTE (%) 2.8 % (3-12); MONOCYTE COUNT 0.4 K/uL (0-0.8); NEUTROPHIL (%) 91.6 % (45-76); NEUTROPHIL COUNT 12.2 K/uL (1.8-6.4); PLATELET COUNT 532 K/uL (156-360); RBC DIS.WIDTH-CV 13.7 % (11.8-14.6); RBC DIS.WIDTH-SD 44.7 % (39-53); RED BLOOD COUNT 3.89 M/uL (4.00-5.50); WHITE BLOOD COUNT 13.3 K/uL (4.1-10.2)
[2017-03-25 07:28] LABS: ANION GAP 4 MEQ/L (2-14); CHLORIDE 103 MEQ/L (99-109); GFR ESTIMATE (CALCULATED) > 59 mL/min/; GLUCOSE 138 mg/dL (70-99); POTASSIUM 4.2 MEQ/L (3.7-5.4); SAMPLE HEMOLYSIS CHECK 0; SAMPLE ICTERIC CHECK 0; SAMPLE LIPEMIA CHECK 0; SODIUM 142 MEQ/L (136-147); UREA NITROGEN (BUN) 17 mg/dL (9-23)
[2017-03-25 08:04] LABS: INTERNAL CONTROL VALID? YES
[2017-03-25 08:14] VITALS: BP 129/80
[2017-03-25 11:42] VITALS: BP 134/77
[2017-03-25 18:23] VITALS: BP 125/62
[2017-03-25 19:32] VITALS: BP 136/72
[2017-03-25 23:14] VITALS: BP 122/72
[2017-03-26 03:16] VITALS: BP 137/88
[2017-03-26 07:30] VITALS: BP 139/84
[2017-03-26 11:17] LABS: EOSINOPHIL (%) 0 % (0-5); HEMATOCRIT 34.3 % (38.0-50.0); IMMATURE GRANULOCYTE (%) 1.1 % (0.0-0.7); IMMATURE GRANULOCYTE COUNT 0.2 K/uL; INSTRUMENT ABS NEUTROPHIL CT 13.4 K/uL; LYMPHOCYTE COUNT 0.6 K/uL (1.0-2.8); MCH 28.3 PG (29.0-34.0); MCHC 31.5 G/DL (30.0-36.0); MEAN PLAT.VOLUME 8.2 uM^3 (9.0-12.4); MONOCYTE (%) 3.7 % (3-12); MONOCYTE COUNT 0.6 K/uL (0-0.8); NEUTROPHIL COUNT 13.4 K/uL (1.8-6.4); PLATELET COUNT 515 K/uL (156-360); RBC DIS.WIDTH-CV 14.1 % (11.8-14.6); RBC DIS.WIDTH-SD 46.5 % (39-53); RED BLOOD COUNT 3.81 M/uL (4.00-5.50); WHITE BLOOD COUNT 14.7 K/uL (4.1-10.2)
[2017-03-26 11:43] LABS: ANION GAP 7 MEQ/L (2-14); CHLORIDE 102 MEQ/L (99-109); GFR ESTIMATE (CALCULATED) > 59 mL/min/; GLUCOSE 148 mg/dL (70-99); POTASSIUM 4.3 MEQ/L (3.7-5.4); SAMPLE HEMOLYSIS CHECK 0; SAMPLE ICTERIC CHECK 0; SAMPLE LIPEMIA CHECK 0; SODIUM 143 MEQ/L (136-147); UREA NITROGEN (BUN) 19 mg/dL (9-23)
[2017-03-26 12:05] VITALS: BP 130/73
[2017-03-26 15:56] VITALS: BP 127/68
[2017-03-26 19:55] VITALS: BP 153/68
[2017-03-26 23:26] VITALS: BP 130/84
[2017-03-27 04:03] VITALS: BP 140/64
[2017-03-27 06:04] LABS: EOSINOPHIL (%) 0 % (0-5); HEMATOCRIT 35.1 % (38.0-50.0); IMMATURE GRANULOCYTE (%) 0.9 % (0.0-0.7); IMMATURE GRANULOCYTE COUNT 0.1 K/uL; INSTRUMENT ABS NEUTROPHIL CT 11.8 K/uL; LYMPHOCYTE COUNT 0.7 K/uL (1.0-2.8); MCH 27.8 PG (29.0-34.0); MCHC 31.3 G/DL (30.0-36.0); MCV 88.6 FL (86-99); MEAN PLAT.VOLUME 8.2 uM^3 (9.0-12.4); MONOCYTE (%) 2.5 % (3-12); MONOCYTE COUNT 0.3 K/uL (0-0.8); NEUTROPHIL (%) 91.4 % (45-76); NEUTROPHIL COUNT 11.8 K/uL (1.8-6.4); PLATELET COUNT 513 K/uL (156-360); RBC DIS.WIDTH-SD 45.7 % (39-53); RED BLOOD COUNT 3.96 M/uL (4.00-5.50); WHITE BLOOD COUNT 12.9 K/uL (4.1-10.2)
[2017-03-27 06:28] LABS: ALKALINE PHOSPHATASE 74 IU/L (3-129); ANION GAP 7 MEQ/L (2-14); CHLORIDE 102 MEQ/L (99-109); DIRECT BILIRUBIN 0.1 mg/dL (0.0-0.3); GFR ESTIMATE (CALCULATED) > 59 mL/min/; GLUCOSE 123 mg/dL (70-99); POTASSIUM 4.5 MEQ/L (3.7-5.4); SAMPLE HEMOLYSIS CHECK 0; SAMPLE ICTERIC CHECK 0; SAMPLE LIPEMIA CHECK 0; SODIUM 142 MEQ/L (136-147); TOTAL BILIRUBIN 0.3 MG/DL (0.0-1.0); UREA NITROGEN (BUN) 14 mg/dL (9-23)
[2017-03-27 08:19] VITALS: BP 154/82
[2017-03-27 11:56] VITALS: BP 144/83
[2017-03-27 15:54] VITALS: BP 141/81
[2017-03-27 16:55] LABS: TROP-I INTERPRETATION NEGATIVE; TROPONIN-I 0.03 ng/mL (0.0-0.30)
[2017-03-27 19:37] VITALS: BP 143/73
[2017-03-27 22:40] LABS: TROP-I INTERPRETATION NEGATIVE; TROPONIN-I 0.03 ng/mL (0.0-0.30)
[2017-03-27 23:27] VITALS: BP 119/64
[2017-03-28 03:20] VITALS: BP 159/83
[2017-03-28 08:17] VITALS: BP 148/82
[2017-03-28 12:15] VITALS: BP 130/79
[2017-03-28 14:14] LABS: HEMATOCRIT 37.8 % (38.0-50.0); MCH 28.5 PG (29.0-34.0); MCV 88.9 FL (86-99); MEAN PLAT.VOLUME 8.2 uM^3 (9.0-12.4); PLATELET COUNT 525 K/uL (156-360); RBC DIS.WIDTH-CV 14.2 % (11.8-14.6); RBC DIS.WIDTH-SD 45.9 % (39-53); RED BLOOD COUNT 4.25 M/uL (4.00-5.50); WHITE BLOOD COUNT 13.3 K/uL (4.1-10.2)
[2017-03-28] MEDS ORDERED: AMOX TR-K CLV1 EAC4 PO (14:32)
[2017-03-28] MEDS ORDERED: PREDNISONE10 MG PO (14:32)
[2017-03-28] MEDS ORDERED: SPIRIVA RESPIMAT4 GM IH (14:32)
[2017-03-28] MEDS ORDERED: ADVAIR HFA120 INHALA IH (14:32)
[2017-03-28 14:37] LABS: ALKALINE PHOSPHATASE 71 IU/L (3-129); ANION GAP 9 MEQ/L (2-14); CHLORIDE 98 MEQ/L (99-109); GFR ESTIMATE (CALCULATED) > 59 mL/min/; GLUCOSE 141 mg/dL (70-99); POTASSIUM 4.3 MEQ/L (3.7-5.4); SAMPLE HEMOLYSIS CHECK 0; SAMPLE ICTERIC CHECK 0; SAMPLE LIPEMIA CHECK 0; SODIUM 139 MEQ/L (136-147); TOTAL BILIRUBIN 0.3 MG/DL (0.0-1.0); UREA NITROGEN (BUN) 15 mg/dL (9-23)
[2017-03-28 16:28] VITALS: BP 138/80
== END 2017-03-28 17:31 | disposition home or self-care (01) | DRG 180 ==
LOC: EME 22:56 → EDOF 03-24 02:34 → 3EAST 03-24 02:34 → ENRESERV 03-24 02:35 → 3EAST 03-24 05:03
PROVIDERS: Emergency Medicine; Hospitalist; Internal Medicine; Internal Medicine Pulmonary Disease
PROC: 0BB88ZX Excision of Left Upper Lobe Bronchus, Via Natural or Artificial Opening Endoscopic, Diagnostic (ICD-10-PCS; principal; 2017-03-25)
DX: C34.12 Malignant neoplasm of upper lobe, left bronchus or lung (principal); J96.21 Acute and chronic respiratory failure with hypoxia; J44.0 Chronic obstructive pulmonary disease with (acute) lower respiratory infection; J15.9 Unspecified bacterial pneumonia; J44.1 Chronic obstructive pulmonary disease with (acute) exacerbation; J98.09 Other diseases of bronchus, not elsewhere classified; R79.1 Abnormal coagulation profile; B18.2 Chronic viral hepatitis C; E87.6 Hypokalemia; I10 Essential (primary) hypertension; F12.90 Cannabis use, unspecified, uncomplicated; F32.9 Major depressive disorder, single episode, unspecified; F41.9 Anxiety disorder, unspecified; Z87.891 Personal history of nicotine dependence
CPT/HCPCS: 71020; 71275; 80048; 80053; 80076; 81003; 82803; 83605; 83880; 84484; 85025; 85027; 85379; 85610; 85730; 87040; 87070; 87116; 87205; 87206; 87278; 87449; 88108; 88305; 88341 TC; 88342 TC; 93005; 94010; 94640; 94640 76; 94760; 94799; 99202; 99281; 99285; J0456; J0461; J1644; J1956; J2175; J2250; J2310; J2543; J2550; J2930; J3010; J7050; J7512

== ENCOUNTER 2017-06-02 10:49 | Day surgery (SDC) | payer OTHER ==
[~2017-06-02] VITALS: Ht 185.4 cm; Wt 53.5 kg
[~2017-06-02 10:49] MED LIST changes: +AMOX TR-K CLV1 EAC4 PO; +ASPIRIN EC325 MG PO; +DESYREL100 MG PO; +INCRUSE ELLI62.5 MCG IH; +PREDNISONE10 MG PO; +VENTOLIN HFA18 GM IH; +XANAX0.25 MG PO
[2017-06-02] MEDS ORDERED: SYMBICORT60 INHALAT IH (11:18)
[2017-06-02 11:27] VITALS: BP 95/65
[2017-06-02 11:36] LABS: INTER. NORMALIZED RATIO 1.2; PROTHROMBIN TIME 14.2 SEC (10.2-12.9)
[2017-06-02] MEDS ORDERED: HYDROCODON-ACE1 EAC7 PO (15:49)
[2017-06-02] MEDS ORDERED: COLACE100 MG PO (15:49)
[2017-06-02 16:05] VITALS: BP 110/60
[2017-06-02 17:20] VITALS: BP 115/56
== END 2017-06-02 17:15 | disposition home or self-care (01) ==
LOC: SDC 10:49
PROVIDERS: Thoracic Surgery (Cardiothoracic Vascular Surgery)
DX: C34.90 Malignant neoplasm of unspecified part of unspecified bronchus or lung (principal); J44.9 Chronic obstructive pulmonary disease, unspecified; B19.20 Unspecified viral hepatitis C without hepatic coma; Z87.891 Personal history of nicotine dependence
CPT/HCPCS: 85610; 85730; 86850; 86900; 86901; 88305; J0131; J0690; J1100; J1885; J2250; J2405; J2710; J3010

== ENCOUNTER → 2017-06-21 | Outpatient (CLI) | payer OTHER ==
[~2017-06-21] MED LIST changes: +COLACE100 MG PO; +HYDROCODON-ACE1 EAC7 PO; +SYMBICORT60 INHALAT IH
== END | disposition home or self-care (01) ==
LOC: NUC 06-14 13:00
DX: C80.1 Malignant (primary) neoplasm, unspecified (principal)
CPT/HCPCS: 78598; A9540; A9567

== ENCOUNTER 2017-07-20 21:46 | Inpatient (IN) | payer OTHER ==
[~2017-07-20] VITALS: Ht 185.4 cm; Wt 52.2 kg
[2017-07-21] MEDS ORDERED: TRAMADOL HCL50 MG PO (07:02)
[2017-07-21 07:06] VITALS: BP 119/66
[2017-07-21 07:11] LABS: BASOPHIL (%) 0.5 % (0-1); BASOPHIL COUNT 0.1 K/uL (0-0.1); EOSINOPHIL (%) 4.1 % (0-5); EOSINOPHIL COUNT 0.4 K/uL (0-0.3); HEMATOCRIT 36.6 % (38.0-50.0); HEMOGLOBIN 11.1 G/DL (12.5-16.6); IMMATURE GRANULOCYTE (%) 0.3 % (0.0-0.7); LYMPHOCYTE (%) 11.5 % (15-42); LYMPHOCYTE COUNT 1.2 K/uL (1.0-2.8); MCH 25.3 PG (29.0-34.0); MCHC 30.3 G/DL (30.0-36.0); MCV 83.4 FL (86-99); MONOCYTE (%) 7.4 % (3-12); MONOCYTE COUNT 0.8 K/uL (0-0.8); NEUTROPHIL (%) 76.2 % (45-76); NEUTROPHIL COUNT 8.1 K/uL (1.8-6.4); PLATELET COUNT 398 K/uL (156-360); RBC DIS.WIDTH-CV 14.7 % (11.8-14.6); RBC DIS.WIDTH-SD 44.6 % (39-53); RED BLOOD COUNT 4.39 M/uL (4.00-5.50); WHITE BLOOD COUNT 10.6 K/uL (4.1-10.2)
[2017-07-21 07:19] LABS: INTER. NORMALIZED RATIO 1.2
[2017-07-21 07:22] LABS: PTT 34.4 SEC (25-37)
[2017-07-21 07:36] LABS: ALBUMIN 3.3 G/DL (3.2-4.8); CHLORIDE 99 MEQ/L (99-109); POTASSIUM 4.3 MEQ/L (3.7-5.4); SODIUM 136 MEQ/L (136-147); TOTAL BILIRUBIN 0.3 MG/DL (0.0-1.0)
[2017-07-21 07:42] LABS: ALKALINE PHOSPHATASE 81 IU/L (3-129); ALT (GPT) 18 IU/L (3-49); AST (GOT) 18 IU/L (2-34); CREATININE 0.5 MG/DL (0.6-1.3); GFR ESTIMATE (CALCULATED) > 59 mL/min/ (58.99-99999); GLUCOSE 88 mg/dL (70-99); TOTAL PROTEIN 7.1 G/DL (6.4-8.3); UREA NITROGEN (BUN) 10 mg/dL (9-23)
[2017-07-21 10:37] LABS: BICARBONATE 30.5 mEq/L (22-26); CARBOXY HGB 2.1 % (0-5); DEVICE VENT; FI02 50 %; METHEMOGLOBIN 1.5 % (0-1.5); PCO2 54 mm Hg (35-45); PO2 105 mm Hg (80-100); SITE FROM OR; pH 7.36 (7.35-7.45)
[2017-07-21 10:38] LABS: MECHANICAL RATE 12 resp/min; PEEP 5 CM/H20; TOTAL RESP RATE 400 resp/min
[2017-07-21 14:17] LABS: HEMATOCRIT 25.5 % (38.0-50.0); MCH 24.6 PG (29.0-34.0); MCHC 29.4 G/DL (30.0-36.0); MCV 83.6 FL (86-99); PLATELET COUNT 343 K/uL (156-360); RBC DIS.WIDTH-CV 14.6 % (11.8-14.6); RBC DIS.WIDTH-SD 44.7 % (39-53); WHITE BLOOD COUNT 16.5 K/uL (4.1-10.2)
[2017-07-21 14:33] LABS: HEMOGLOBIN 7.5 G/DL (12.5-16.6); RED BLOOD COUNT 3.05 M/uL (4.00-5.50)
[2017-07-21 19:22] LABS: HEMATOCRIT 28.6 % (38.0-50.0); HEMOGLOBIN 8.5 G/DL (12.5-16.6); MCV 85.1 FL (86-99)
[2017-07-21 20:42] LABS: CHLORIDE 102 mEq/L (99-109); POTASSIUM 4.6 mEq/L (3.7-5.4); SODIUM 135 mEq/L (136-147)
[2017-07-21 20:44] LABS: GLUCOSE 139 mg/dL (70-99)
[2017-07-21 20:47] LABS: CREATININE 0.6 mg/dL (0.6-1.3); GFR ESTIMATE (CALCULATED) > 59 mL/min/ (58.99-99999)
[2017-07-21 20:48] LABS: UREA NITROGEN (BUN) 13 mg/dL (9-23)
[2017-07-22] VITALS (7 sets, daily range): BP systolic 108–135; BP diastolic 58–85
[2017-07-22 07:04] LABS: HEMATOCRIT 26.9 % (38.0-50.0); HEMOGLOBIN 8.2 G/DL (12.5-16.6); MCH 25.2 PG (29.0-34.0); MCHC 30.5 G/DL (30.0-36.0); MCV 82.8 FL (86-99); PLATELET COUNT 357 K/uL (156-360); RBC DIS.WIDTH-CV 14.6 % (11.8-14.6); RBC DIS.WIDTH-SD 44.6 % (39-53); RED BLOOD COUNT 3.25 M/uL (4.00-5.50); WHITE BLOOD COUNT 10.3 K/uL (4.1-10.2)
[2017-07-22 07:43] LABS: CHLORIDE 99 MEQ/L (99-109); CREATININE 0.3 MG/DL (0.6-1.3); GFR ESTIMATE (CALCULATED) > 59 mL/min/ (58.99-99999); GLUCOSE 119 mg/dL (70-99); POTASSIUM 4.3 MEQ/L (3.7-5.4); SODIUM 134 MEQ/L (136-147); UREA NITROGEN (BUN) 12 mg/dL (9-23)
[2017-07-23] VITALS (8 sets, daily range): BP systolic 113–152; BP diastolic 61–80
[2017-07-23 05:03] LABS: HEMATOCRIT 24.7 % (38.0-50.0); HEMOGLOBIN 7.7 G/DL (12.5-16.6); MCH 25.2 PG (29.0-34.0); MCHC 31.2 G/DL (30.0-36.0); PLATELET COUNT 308 K/uL (156-360); RBC DIS.WIDTH-CV 14.6 % (11.8-14.6); RBC DIS.WIDTH-SD 43.5 % (39-53); RED BLOOD COUNT 3.05 M/uL (4.00-5.50); WHITE BLOOD COUNT 10.1 K/uL (4.1-10.2)
[2017-07-23 05:18] LABS: CHLORIDE 97 mEq/L (99-109); POTASSIUM 4.1 mEq/L (3.7-5.4); SODIUM 131 mEq/L (136-147)
[2017-07-23 05:19] LABS: GLUCOSE 94 mg/dL (70-99)
[2017-07-23 05:23] LABS: CREATININE 0.5 mg/dL (0.6-1.3); GFR ESTIMATE (CALCULATED) > 59 mL/min/ (58.99-99999)
[2017-07-23 05:24] LABS: UREA NITROGEN (BUN) 10 mg/dL (9-23)
[2017-07-24] VITALS (20 sets, daily range): BP systolic 89–154; BP diastolic 54–86
[2017-07-24 00:05] LABS: BICARBONATE 35.1 mEq/L (22-26); CARBOXY HGB 1.8 % (0-5); PCO2 82 mm Hg (35-45); PO2 53 mm Hg (80-100); pH 7.24 (7.35-7.45)
[2017-07-24 00:06] LABS: COMMENTS - BLOOD GASES C+; DEVICE CAM; FI02 100 %; O2 FLOW 15 L/MIN; SITE RR; TOTAL RESP RATE 32 resp/min
[2017-07-24 00:20] LABS: BASOPHIL (%) 0.3 % (0-1); EOSINOPHIL (%) 0.7 % (0-5); EOSINOPHIL COUNT 0.1 K/uL (0-0.3); HEMATOCRIT 29.9 % (38.0-50.0); HEMOGLOBIN 9.2 G/DL (12.5-16.6); LYMPHOCYTE (%) 8.8 % (15-42); LYMPHOCYTE COUNT 1.1 K/uL (1.0-2.8); MCH 25.6 PG (29.0-34.0); MCHC 30.8 G/DL (30.0-36.0); MCV 83.1 FL (86-99); MONOCYTE (%) 6.6 % (3-12); MONOCYTE COUNT 0.8 K/uL (0-0.8); NEUTROPHIL (%) 82.6 % (45-76); NEUTROPHIL COUNT 9.9 K/uL (1.8-6.4); PLATELET COUNT 308 K/uL (156-360); RBC DIS.WIDTH-CV 14.8 % (11.8-14.6); RBC DIS.WIDTH-SD 45.1 % (39-53); WHITE BLOOD COUNT 11.9 K/uL (4.1-10.2)
[2017-07-24 00:29] LABS: ALBUMIN 3.1 g/dL (3.2-4.8); CHLORIDE 101 mEq/L (99-109); POTASSIUM 3.9 mEq/L (3.7-5.4)
[2017-07-24 00:32] LABS: TOTAL PROTEIN 5.6 g/dL (6.4-8.3)
[2017-07-24 00:34] LABS: TOTAL BILIRUBIN 0.4 mg/dL (0.0-1.0)
[2017-07-24 00:35] LABS: ALKALINE PHOSPHATASE 66 IU/L (3-129); GLUCOSE 167 mg/dL (70-99); SODIUM 140 mEq/L (136-147)
[2017-07-24 00:36] LABS: CREATININE 0.5 mg/dL (0.6-1.3); GFR ESTIMATE (CALCULATED) > 59 mL/min/ (58.99-99999)
[2017-07-24 00:37] LABS: AST (GOT) 32 IU/L (2-34); UREA NITROGEN (BUN) 9 mg/dL (9-23)
[2017-07-24 00:38] LABS: ALT (GPT) 19 IU/L (3-49)
[2017-07-24 01:24] LABS: BASE EXCESS 9.7 mEq/L (-3 to +3); BICARBONATE 36.7 mEq/L (22-26); CARBOXY HGB 1.7 % (0-5); COMMENTS - BLOOD GASES C+; METHEMOGLOBIN 1.6 % (0-1.5); O2 FLOW 15 L/MIN; PCO2 65 mm Hg (35-45); PO2 53 mm Hg (80-100); SITE RR; pH 7.36 (7.35-7.45)
[2017-07-24 01:25] LABS: DEVICE COOL AEROSOL MASK; FI02 60 %; TOTAL RESP RATE 20 resp/min
[2017-07-24 05:35] LABS: BASOPHIL (%) 0.3 % (0-1); EOSINOPHIL (%) 1.3 % (0-5); EOSINOPHIL COUNT 0.1 K/uL (0-0.3); HEMATOCRIT 26.2 % (38.0-50.0); HEMOGLOBIN 8.1 G/DL (12.5-16.6); IMMATURE GRANULOCYTE (%) 0.6 % (0.0-0.7); LYMPHOCYTE (%) 6.6 % (15-42); LYMPHOCYTE COUNT 0.7 K/uL (1.0-2.8); MCH 25.8 PG (29.0-34.0); MCHC 30.9 G/DL (30.0-36.0); MCV 83.4 FL (86-99); MONOCYTE COUNT 0.6 K/uL (0-0.8); NEUTROPHIL (%) 85.2 % (45-76); PLATELET COUNT 264 K/uL (156-360); RBC DIS.WIDTH-SD 45.6 % (39-53); RED BLOOD COUNT 3.14 M/uL (4.00-5.50); WHITE BLOOD COUNT 10.6 K/uL (4.1-10.2)
[2017-07-24 06:21] LABS: CHLORIDE 100 MEQ/L (99-109); CREATININE 0.3 MG/DL (0.6-1.3); GFR ESTIMATE (CALCULATED) > 59 mL/min/ (58.99-99999); POTASSIUM 3.9 MEQ/L (3.7-5.4); SODIUM 139 MEQ/L (136-147); UREA NITROGEN (BUN) 9 mg/dL (9-23)
[2017-07-24 06:34] LABS: GLUCOSE 102 mg/dL (70-99)
[2017-07-24 12:14] LABS: BASE EXCESS 11.5 mEq/L (-3 to +3); BICARBONATE 37.2 mEq/L (22-26); CARBOXY HGB 2.1 % (0-5); COMMENTS - BLOOD GASES A+C+; DEVICE HHNC; METHEMOGLOBIN 1.5 % (0-1.5); PCO2 56 mm Hg (35-45); PO2 57 mm Hg (80-100); SITE RR; pH 7.43 (7.35-7.45)
[2017-07-24 12:15] LABS: FI02 50 %; O2 FLOW 30 L/MIN
[2017-07-25] VITALS (19 sets, daily range): BP systolic 101–148; BP diastolic 65–97
[2017-07-26] VITALS (21 sets, daily range): BP systolic 93–134; BP diastolic 58–115
[2017-07-27] VITALS (23 sets, daily range): BP systolic 91–120; BP diastolic 46–73
[2017-07-27] MEDS ORDERED: PAXIL10 MG PO (11:34)
[2017-07-28] VITALS (24 sets, daily range): BP systolic 92–125; BP diastolic 57–79
[2017-07-28 15:38] LABS: BASOPHIL (%) 0.4 % (0-1); EOSINOPHIL (%) 7.2 % (0-5); EOSINOPHIL COUNT 0.5 K/uL (0-0.3); HEMATOCRIT 27.2 % (38.0-50.0); HEMOGLOBIN 7.9 G/DL (12.5-16.6); IMMATURE GRANULOCYTE (%) 0.7 % (0.0-0.7); LYMPHOCYTE (%) 16.9 % (15-42); LYMPHOCYTE COUNT 1.3 K/uL (1.0-2.8); MCH 24.9 PG (29.0-34.0); MCV 85.8 FL (86-99); MONOCYTE (%) 8.3 % (3-12); MONOCYTE COUNT 0.6 K/uL (0-0.8); NEUTROPHIL (%) 66.5 % (45-76); NEUTROPHIL COUNT 4.9 K/uL (1.8-6.4); PLATELET COUNT 303 K/uL (156-360); RBC DIS.WIDTH-CV 14.9 % (11.8-14.6); RBC DIS.WIDTH-SD 46.5 % (39-53); RED BLOOD COUNT 3.17 M/uL (4.00-5.50); WHITE BLOOD COUNT 7.4 K/uL (4.1-10.2)
[2017-07-28 15:47] LABS: ALBUMIN 2.8 G/DL (3.2-4.8); CHLORIDE 97 MEQ/L (99-109); MAGNESIUM 1.9 mg/dl (1.3-2.7); POTASSIUM 4.2 MEQ/L (3.7-5.4); SODIUM 141 MEQ/L (136-147); TOTAL BILIRUBIN 0.2 MG/DL (0.0-1.0)
[2017-07-28 15:54] LABS: ALKALINE PHOSPHATASE 59 IU/L (3-129); ALT (GPT) 43 IU/L (3-49); AST (GOT) 46 IU/L (2-34); CREATININE 0.4 MG/DL (0.6-1.3); GFR ESTIMATE (CALCULATED) > 59 mL/min/ (58.99-99999); GLUCOSE 107 mg/dL (70-99); PHOSPHORUS 3.8 mg/dL (2.5-4.9); TOTAL PROTEIN 6.1 G/DL (6.4-8.3); UREA NITROGEN (BUN) 8 mg/dL (9-23)
[2017-07-28 16:24] LABS: BASE EXCESS 18.1 mEq/L (-3 to +3); BICARBONATE 44.8 mEq/L (22-26); CARBOXY HGB 1.8 % (0-5); METHEMOGLOBIN 1.1 % (0-1.5); PCO2 69 mm Hg (35-45); PO2 83 mm Hg (80-100); pH 7.42 (7.35-7.45)
[2017-07-28 16:25] LABS: COMMENTS - BLOOD GASES A+C+; DEVICE NC; O2 FLOW 4 L/MIN; SITE RR; TOTAL RESP RATE 19 resp/min
[2017-07-29] VITALS (14 sets, daily range): BP systolic 89–118; BP diastolic 57–74
[2017-07-29 05:29] LABS: BASOPHIL (%) 0.4 % (0-1); EOSINOPHIL (%) 7.7 % (0-5); EOSINOPHIL COUNT 0.5 K/uL (0-0.3); HEMATOCRIT 26.7 % (38.0-50.0); HEMOGLOBIN 7.8 G/DL (12.5-16.6); IMMATURE GRANULOCYTE (%) 0.4 % (0.0-0.7); LYMPHOCYTE (%) 22.4 % (15-42); LYMPHOCYTE COUNT 1.6 K/uL (1.0-2.8); MCH 25.2 PG (29.0-34.0); MCHC 29.2 G/DL (30.0-36.0); MCV 86.1 FL (86-99); MONOCYTE (%) 8.6 % (3-12); MONOCYTE COUNT 0.6 K/uL (0-0.8); NEUTROPHIL (%) 60.5 % (45-76); NEUTROPHIL COUNT 4.2 K/uL (1.8-6.4); PLATELET COUNT 359 K/uL (156-360); RBC DIS.WIDTH-CV 15.3 % (11.8-14.6); RBC DIS.WIDTH-SD 47.8 % (39-53)
[2017-07-29 05:54] LABS: ALBUMIN 2.6 G/DL (3.2-4.8); ALKALINE PHOSPHATASE 58 IU/L (3-129); ALT (GPT) 43 IU/L (3-49); AST (GOT) 47 IU/L (2-34); CARBON DIOXIDE (BICARBONATE) > 40.0 MEQ/L (20-31); CHLORIDE 97 MEQ/L (99-109); CREATININE 0.4 MG/DL (0.6-1.3); GFR ESTIMATE (CALCULATED) > 59 mL/min/ (58.99-99999); GLUCOSE 100 mg/dL (70-99); MAGNESIUM 1.9 mg/dl (1.3-2.7); PHOSPHORUS 4.7 mg/dL (2.5-4.9); POTASSIUM 4.4 MEQ/L (3.7-5.4); SODIUM 141 MEQ/L (136-147); TOTAL BILIRUBIN 0.2 MG/DL (0.0-1.0); TOTAL PROTEIN 5.6 G/DL (6.4-8.3); UREA NITROGEN (BUN) 9 mg/dL (9-23)
[2017-07-30] VITALS (7 sets, daily range): BP systolic 108–124; BP diastolic 58–84
[2017-07-30 06:37] LABS: BASOPHIL (%) 0.4 % (0-1); EOSINOPHIL (%) 5.5 % (0-5); EOSINOPHIL COUNT 0.5 K/uL (0-0.3); IMMATURE GRANULOCYTE (%) 0.5 % (0.0-0.7); LYMPHOCYTE (%) 18.4 % (15-42); LYMPHOCYTE COUNT 1.5 K/uL (1.0-2.8); MCH 25.5 PG (29.0-34.0); MCV 87.8 FL (86-99); MONOCYTE (%) 7.3 % (3-12); MONOCYTE COUNT 0.6 K/uL (0-0.8); NEUTROPHIL (%) 67.9 % (45-76); NEUTROPHIL COUNT 5.6 K/uL (1.8-6.4); PLATELET COUNT 402 K/uL (156-360); RBC DIS.WIDTH-CV 15.6 % (11.8-14.6); RBC DIS.WIDTH-SD 49.6 % (39-53); RED BLOOD COUNT 3.53 M/uL (4.00-5.50); WHITE BLOOD COUNT 8.2 K/uL (4.1-10.2)
[2017-07-30 07:04] LABS: ALKALINE PHOSPHATASE 77 IU/L (3-129); ALT (GPT) 49 IU/L (3-49); AST (GOT) 49 IU/L (2-34); CHLORIDE 97 MEQ/L (99-109); CREATININE 0.4 MG/DL (0.6-1.3); GFR ESTIMATE (CALCULATED) > 59 mL/min/ (58.99-99999); GLUCOSE 93 mg/dL (70-99); MAGNESIUM 1.9 mg/dl (1.3-2.7); PHOSPHORUS 4.2 mg/dL (2.5-4.9); POTASSIUM 4.4 MEQ/L (3.7-5.4); SODIUM 143 MEQ/L (136-147); TOTAL PROTEIN 6.2 G/DL (6.4-8.3); UREA NITROGEN (BUN) 10 mg/dL (9-23)
[2017-07-30 07:20] LABS: TOTAL BILIRUBIN 0.3 MG/DL (0.0-1.0)
[2017-07-31] VITALS (7 sets, daily range): BP systolic 97–143; BP diastolic 64–84
[2017-07-31 06:28] LABS: BASOPHIL (%) 0.6 % (0-1); BASOPHIL COUNT 0.1 K/uL (0-0.1); EOSINOPHIL (%) 5.1 % (0-5); EOSINOPHIL COUNT 0.5 K/uL (0-0.3); HEMATOCRIT 29.9 % (38.0-50.0); HEMOGLOBIN 8.5 G/DL (12.5-16.6); IMMATURE GRANULOCYTE (%) 0.4 % (0.0-0.7); LYMPHOCYTE (%) 18.7 % (15-42); LYMPHOCYTE COUNT 1.7 K/uL (1.0-2.8); MCH 24.9 PG (29.0-34.0); MCHC 28.4 G/DL (30.0-36.0); MCV 87.4 FL (86-99); MONOCYTE (%) 9.2 % (3-12); MONOCYTE COUNT 0.8 K/uL (0-0.8); NEUTROPHIL COUNT 5.9 K/uL (1.8-6.4); PLATELET COUNT 399 K/uL (156-360); RBC DIS.WIDTH-CV 15.7 % (11.8-14.6); RBC DIS.WIDTH-SD 49.7 % (39-53); RED BLOOD COUNT 3.42 M/uL (4.00-5.50)
[2017-07-31 06:58] LABS: ALBUMIN 2.8 G/DL (3.2-4.8); ALKALINE PHOSPHATASE 70 IU/L (3-129); ALT (GPT) 48 IU/L (3-49); AST (GOT) 49 IU/L (2-34); CHLORIDE 93 MEQ/L (99-109); CREATININE 0.4 MG/DL (0.6-1.3); GFR ESTIMATE (CALCULATED) > 59 mL/min/ (58.99-99999); GLUCOSE 87 mg/dL (70-99); MAGNESIUM 1.7 mg/dl (1.3-2.7); PHOSPHORUS 3.7 mg/dL (2.5-4.9); POTASSIUM 4.6 MEQ/L (3.7-5.4); SODIUM 137 MEQ/L (136-147); TOTAL BILIRUBIN 0.3 MG/DL (0.0-1.0); UREA NITROGEN (BUN) 12 mg/dL (9-23)
[2017-07-31 07:00] LABS: CARBON DIOXIDE (BICARBONATE) > 40.0 MEQ/L (20-31)
[2017-08-01 04:10] VITALS: BP 114/63
[2017-08-01 06:12] LABS: BASOPHIL (%) 0.4 % (0-1); BASOPHIL COUNT 0.1 K/uL (0-0.1); EOSINOPHIL COUNT 0.5 K/uL (0-0.3); HEMATOCRIT 26.9 % (38.0-50.0); HEMOGLOBIN 7.9 G/DL (12.5-16.6); IMMATURE GRANULOCYTE (%) 0.6 % (0.0-0.7); LYMPHOCYTE (%) 9.4 % (15-42); LYMPHOCYTE COUNT 1.3 K/uL (1.0-2.8); MCH 25.5 PG (29.0-34.0); MCHC 29.4 G/DL (30.0-36.0); MCV 86.8 FL (86-99); MONOCYTE (%) 7.5 % (3-12); NEUTROPHIL (%) 78.1 % (45-76); NEUTROPHIL COUNT 10.5 K/uL (1.8-6.4); PLATELET COUNT 378 K/uL (156-360); RBC DIS.WIDTH-CV 15.9 % (11.8-14.6); WHITE BLOOD COUNT 13.5 K/uL (4.1-10.2)
[2017-08-01 06:49] LABS: ALBUMIN 2.7 G/DL (3.2-4.8); ALKALINE PHOSPHATASE 81 IU/L (3-129); ALT (GPT) 40 IU/L (3-49); AST (GOT) 45 IU/L (2-34); CHLORIDE 94 MEQ/L (99-109); CREATININE 0.3 MG/DL (0.6-1.3); GFR ESTIMATE (CALCULATED) > 59 mL/min/ (58.99-99999); GLUCOSE 89 mg/dL (70-99); MAGNESIUM 1.8 mg/dl (1.3-2.7); PHOSPHORUS 3.4 mg/dL (2.5-4.9); POTASSIUM 4.7 MEQ/L (3.7-5.4); SODIUM 141 MEQ/L (136-147); TOTAL BILIRUBIN 0.3 MG/DL (0.0-1.0); TOTAL PROTEIN 5.5 G/DL (6.4-8.3); UREA NITROGEN (BUN) 12 mg/dL (9-23)
[2017-08-01 06:57] LABS: CARBON DIOXIDE (BICARBONATE) > 40.0 MEQ/L (20-31)
[2017-08-01 08:13] VITALS: BP 97/55
[2017-08-01 11:47] VITALS: BP 96/61
[2017-08-01 16:43] VITALS: BP 110/69
[2017-08-01 19:20] VITALS: BP 102/62
[2017-08-02 00:06] VITALS: BP 110/66
[2017-08-02 03:51] VITALS: BP 127/71
[2017-08-02 05:53] LABS: BASOPHIL (%) 0.3 % (0-1); EOSINOPHIL (%) 4.9 % (0-5); EOSINOPHIL COUNT 0.5 K/uL (0-0.3); HEMATOCRIT 26.9 % (38.0-50.0); HEMOGLOBIN 7.9 G/DL (12.5-16.6); IMMATURE GRANULOCYTE (%) 0.3 % (0.0-0.7); LYMPHOCYTE (%) 12.5 % (15-42); LYMPHOCYTE COUNT 1.3 K/uL (1.0-2.8); MCH 25.9 PG (29.0-34.0); MCHC 29.4 G/DL (30.0-36.0); MCV 88.2 FL (86-99); MONOCYTE (%) 6.7 % (3-12); MONOCYTE COUNT 0.7 K/uL (0-0.8); NEUTROPHIL (%) 75.3 % (45-76); NEUTROPHIL COUNT 7.6 K/uL (1.8-6.4); PLATELET COUNT 364 K/uL (156-360); RBC DIS.WIDTH-CV 16.3 % (11.8-14.6); RBC DIS.WIDTH-SD 51.8 % (39-53); RED BLOOD COUNT 3.05 M/uL (4.00-5.50); WHITE BLOOD COUNT 10.1 K/uL (4.1-10.2)
[2017-08-02 06:12] LABS: ALBUMIN 2.7 G/DL (3.2-4.8); ALKALINE PHOSPHATASE 80 IU/L (3-129); ALT (GPT) 38 IU/L (3-49); AST (GOT) 41 IU/L (2-34); CHLORIDE 95 MEQ/L (99-109); CREATININE 0.4 MG/DL (0.6-1.3); GFR ESTIMATE (CALCULATED) > 59 mL/min/ (58.99-99999); GLUCOSE 96 mg/dL (70-99); MAGNESIUM 1.8 mg/dl (1.3-2.7); PHOSPHORUS 4.4 mg/dL (2.5-4.9); POTASSIUM 4.4 MEQ/L (3.7-5.4); SODIUM 140 MEQ/L (136-147); TOTAL BILIRUBIN 0.3 MG/DL (0.0-1.0); TOTAL PROTEIN 5.6 G/DL (6.4-8.3); UREA NITROGEN (BUN) 10 mg/dL (9-23)
[2017-08-02 08:05] VITALS: BP 100/61
[2017-08-02 12:06] VITALS: BP 120/66
[2017-08-02 16:15] VITALS: BP 107/63
[2017-08-02 20:10] VITALS: BP 112/61
[2017-08-03] VITALS (7 sets, daily range): BP systolic 103–131; BP diastolic 59–71
[2017-08-03 05:09] LABS: BASOPHIL (%) 0.2 % (0-1); EOSINOPHIL (%) 1.7 % (0-5); EOSINOPHIL COUNT 0.3 K/uL (0-0.3); HEMATOCRIT 27.5 % (38.0-50.0); IMMATURE GRANULOCYTE (%) 0.6 % (0.0-0.7); LYMPHOCYTE (%) 6.1 % (15-42); LYMPHOCYTE COUNT 1.1 K/uL (1.0-2.8); MCH 25.5 PG (29.0-34.0); MCHC 29.1 G/DL (30.0-36.0); MCV 87.6 FL (86-99); MONOCYTE (%) 6.1 % (3-12); MONOCYTE COUNT 1.1 K/uL (0-0.8); NEUTROPHIL (%) 85.3 % (45-76); NEUTROPHIL COUNT 15.4 K/uL (1.8-6.4); PLATELET COUNT 404 K/uL (156-360); RBC DIS.WIDTH-CV 16.4 % (11.8-14.6); RBC DIS.WIDTH-SD 51.8 % (39-53); RED BLOOD COUNT 3.14 M/uL (4.00-5.50)
[2017-08-03 05:38] LABS: ALBUMIN 2.8 G/DL (3.2-4.8); ALKALINE PHOSPHATASE 76 IU/L (3-129); ALT (GPT) 37 IU/L (3-49); AST (GOT) 37 IU/L (2-34); CHLORIDE 95 MEQ/L (99-109); CREATININE 0.4 MG/DL (0.6-1.3); GFR ESTIMATE (CALCULATED) > 59 mL/min/ (58.99-99999); GLUCOSE 105 mg/dL (70-99); MAGNESIUM 1.7 mg/dl (1.3-2.7); PHOSPHORUS 3.9 mg/dL (2.5-4.9); POTASSIUM 4.4 MEQ/L (3.7-5.4); SODIUM 139 MEQ/L (136-147); TOTAL BILIRUBIN 0.3 MG/DL (0.0-1.0); TOTAL PROTEIN 5.8 G/DL (6.4-8.3); UREA NITROGEN (BUN) 9 mg/dL (9-23)
[2017-08-04 05:09] VITALS: BP 109/58
[2017-08-04 05:25] LABS: BASOPHIL (%) 0.2 % (0-1); EOSINOPHIL (%) 3.8 % (0-5); EOSINOPHIL COUNT 0.5 K/uL (0-0.3); HEMOGLOBIN 7.9 G/DL (12.5-16.6); IMMATURE GRANULOCYTE (%) 0.6 % (0.0-0.7); LYMPHOCYTE (%) 11.5 % (15-42); LYMPHOCYTE COUNT 1.5 K/uL (1.0-2.8); MCH 25.3 PG (29.0-34.0); MCHC 29.3 G/DL (30.0-36.0); MCV 86.5 FL (86-99); MONOCYTE (%) 5.9 % (3-12); MONOCYTE COUNT 0.8 K/uL (0-0.8); PLATELET COUNT 449 K/uL (156-360); RBC DIS.WIDTH-CV 16.5 % (11.8-14.6); RBC DIS.WIDTH-SD 51.3 % (39-53); RED BLOOD COUNT 3.12 M/uL (4.00-5.50); WHITE BLOOD COUNT 12.8 K/uL (4.1-10.2)
[2017-08-04 05:53] LABS: ALBUMIN 2.7 G/DL (3.2-4.8); ALKALINE PHOSPHATASE 71 IU/L (3-129); ALT (GPT) 31 IU/L (3-49); AST (GOT) 29 IU/L (2-34); CHLORIDE 97 MEQ/L (99-109); CREATININE 0.4 MG/DL (0.6-1.3); GFR ESTIMATE (CALCULATED) > 59 mL/min/ (58.99-99999); GLUCOSE 95 mg/dL (70-99); MAGNESIUM 1.7 mg/dl (1.3-2.7); PHOSPHORUS 3.8 mg/dL (2.5-4.9); SODIUM 140 MEQ/L (136-147); TOTAL BILIRUBIN 0.3 MG/DL (0.0-1.0); TOTAL PROTEIN 5.6 G/DL (6.4-8.3); UREA NITROGEN (BUN) 10 mg/dL (9-23)
[2017-08-04 08:19] VITALS: BP 111/62
[2017-08-04 11:51] VITALS: BP 109/63
[2017-08-04 15:35] VITALS: BP 117/67
[2017-08-04] MEDS ORDERED: ENDOCET 5-3251 EACH PO (16:22)
[2017-08-04] MEDS ORDERED: DOCUSATE SODIU100 MG PO (16:22)
== END 2017-08-04 18:40 | disposition home health service (06) | DRG 163 ==
LOC: ENRESERV 21:46 → 4WEST 07-21 06:17 → 4EAST 07-21 06:17 → 2SOUTH 07-21 06:17 → ENRESERV 07-21 09:11 → 2SOUTH 07-21 09:12 → ENRESERV 07-21 20:40 → 4EAST 07-22 00:22 → ENRESERV 07-24 00:21 → 4WEST 07-24 00:25 → ENRESERV 07-29 17:04 → 4EAST 07-29 19:10 → ENPENDDIS 08-04 → 4EAST 08-04 18:40
PROVIDERS: Internal Medicine; Surgery; Thoracic Surgery (Cardiothoracic Vascular Surgery)
PROC: 0BNG0ZZ Release Left Upper Lung Lobe, Open Approach (ICD-10-PCS; principal; 2017-07-21)
PROC: 0W9B30Z Drainage of Left Pleural Cavity with Drainage Device, Percutaneous Approach (ICD-10-PCS; principal; 2017-07-21)
PROC: 3E0R3BZ Introduction of Anesthetic Agent into Spinal Canal, Percutaneous Approach (ICD-10-PCS; 2017-07-21)
PROC: 00HU33Z Insertion of Infusion Device into Spinal Canal, Percutaneous Approach (ICD-10-PCS; 2017-07-21)
PROC: 30233N1 Transfusion of Nonautologous Red Blood Cells into Peripheral Vein, Percutaneous Approach (ICD-10-PCS; 2017-07-21)
DX: C34.82 Malignant neoplasm of overlapping sites of left bronchus and lung (principal); J84.10 Pulmonary fibrosis, unspecified; J95.812 Postprocedural air leak; J96.21 Acute and chronic respiratory failure with hypoxia; J44.0 Chronic obstructive pulmonary disease with (acute) lower respiratory infection; J18.9 Pneumonia, unspecified organism; Y95 Nosocomial condition; E87.2 Acidosis; G89.18 Other acute postprocedural pain; D62 Acute posthemorrhagic anemia; E46 Unspecified protein-calorie malnutrition; F41.9 Anxiety disorder, unspecified; I10 Essential (primary) hypertension; B19.20 Unspecified viral hepatitis C without hepatic coma; Z68.1 Body mass index [BMI] 19.9 or less, adult; Z87.891 Personal history of nicotine dependence
CPT/HCPCS: 36600; 71045; 71046; 80048; 80048 91; 80053; 80202; 82803; 83605; 83735; 84100; 85014; 85018; 85025; 85025 91; 85027; 85610; 85730; 86850; 86900; 86901; 86920; 87641; 88300; 88305; 88311; 94010; 94640; 94640 76; 94644; 94667; 94668; 94760; 94799; 97530 GO; 97530 GP; 99202; J0131; J0690; J1100; J1170; J1644; J1885; J2250; J2405; J2543; J2710; J3010; J3370; J7050; J7120; P9016; P9045; S0020